=== PATIENT | male | born 1930 | race Caucasian/White ===

== ENCOUNTER 2016-11-09 13:22 | Inpatient (IN) | payer MEDICARE, BC ==
[~2016-11-09] VITALS: Ht 172.7 cm; Wt 80.2 kg
--- NOTE | ~2016-11-09 | HEMODYNAMI ---
PATIENT:SOBIA MORRIS MEDICAL RECORD: [id number] : [birth year] [id number] ADMISSION DATE: 11/10/16 Generatedon:11/13/20169:48 Patient name: SOBIA MORRIS Patient #: [id number] : 1930 Date of study: 11/13/2016 Page: Of Hemodynamic Procedure Report Patient Data Patient Demographics Procedure consent was obtained First Name: SOBIA Gender: Male Last Name: ALEXANDRA : 1930 [facility] Initial: Faheem Age: 86 year(s) Patient #: [id number] Race: SSN: [id number] Additional ID: [id number] Contact details [address]: [address] [place] [address] State: [place] City: [place] Zip code: [address] Past Medical History History of disease Date Diagnosis Comments CAD Allergies: No known allergies Admission Admission Data Admission Date: 11/10/2016 Admission Time: 15:36 Arrival Date: 11/10/2016 Arrival Time: 15:36 Admit Source: Other Insurance Payor: Medicare Room #: D.2119 Height (in.): 68 BSA: 1.96 (m2) Height (cm.): 172.72 BMI: 27.49 (kg/m2) Weight (lbs.): 180.78 Weight (kg.): 82 Lab Results Lab Result Date: 11/13/2016 Lab Result Time: 0:00 Biochemistry Name Units Result Min Max BUN mg/dl 15 --(--*-)-- 7 18 Creatinine mg/dl 1.1 --(--*-)-- 0.6 1.3 CBC Name Units Result Min Max Hemoglobin g/dl 11.9 *-(----)-- 13.5 17.5 Procedure Procedure Types Cath Procedure PCI Procedure Coronary Stent Initial Coronary Stent Additional Procedure Description Procedure Date Procedure Date: 11/13/2016 Procedure Start Time: 9:28 Procedure End Time: 9:42 Procedure Staff Name Function Sonu Perez MD Performing Physician Kermit Quinones RT Scrub Fátima Toure RN Nurse Tye Jama RT Activities Therapist Ashely Pacheco RT Monitor Indication Angina Procedure Data Cath Procedure Fluoroscopy Diagnostic fluoroscopy Total fluoroscopy Time: 4.7 time: 4.7 min min Diagnostic fluoroscopy Total fluoroscopy dose: 872 dose: 872 mGy mGy Contrast Material Contrast Material Type Amount (ml) Isovue 370 96 Entry Location Entry Primary Successful Side Size Upsize Upsize Entry Closure Succes sful Closure Location (Fr) 1 (Fr) 2 (Fr) Remarks Device Remarks Femoral Left 6 Fr Vascade artery Short Closure System Estimated blood loss: 5 ml Procedure Complications No complications Procedure Medications Medication Administration Route Dosage Oxygen NC 2 l/min Heparin Flush Bag added to field 2 bags (1000units/500ml NS) Lidocaine 2% added to field 20 Versed I.V. 1 mg Fentanyl I.V. 50 mcg Heparin Bolus I.V. 4000 units Integrilin (Bolus I.V. 7.3 ml 2mg/ml) Versed I.V. 0.5 mg Fentanyl I.V. 25 mcg Nitroglycerin IC/IA I.C. 200 mcg Plavix P.O. 600 mg Hemodynamics Rest BSA: 1.96 (m2) HGB: 11.9 (g/dl) O2 Consumption: Estimated: 225.79 (ml/min) O2 Co nsumption indexed: Estimated:115.2 (ml/min/m) Heart Rate: 75 (bpm) Snapshots Pre Cath Intra NCS Post Cath Vital Signs Time Heart Resp SPO2 NIBP (mmHg) Rhythm Pain Sedation Rate (ipm) (%) Status Level (bpm) 9:09:54 72 14 97 148/71(119) NSR 0 (11) 10(A) , No pain 9:14:14 71 15 98 151/74(105) NSR 0 (11) 10(A) , No pain 9:18:38 68 16 99 148/65(108) NSR 0 (11) 10(A) , No pain 9:22:58 68 16 98 153/73(113) NSR 0 (11) 10(A) , No pain 9:27:25 64 16 96 135/61(92) NSR 0 (11) 9(A) , No pain 9:31:41 64 15 96 114/65(89) NSR 0 (11) 9(A) , No pain 9:35:53 74 15 98 131/56(98) NSR 0 (11) 9(A) , No pain 9:40:11 64 20 95 113/61(87) NSR 0 (11) 10(A) , No pain Medications Time Medication Route Dose Verified Delivered Reason Notes Effectiveness by by 9:03:58 Oxygen NC 2 Sonu Fátima Per physician l/min Chris Toure RN 9:04:05 Heparin Flush added 2 Sonu Ascencio used for Bag to bags Chris Perez MD procedure (1000units/500ml field NS) 9:04:13 Lidocaine 2% added 20ml Sonu Ascencio used for to vial Chris Perez MD procedure field 9:25:10 Versed I.V. 1 mg Sonu Fátima for sedation Chris Toure RN 9:25:17 Fentanyl I.V. 50 Sonu Fátima for sedation mcg Chris Toure RN 9:27:39 Versed I.V. 0.5 Sonu Fátima for sedation mg Chris Toure RN 9:27:48 Fentanyl I.V. 25 Sonu Fátima for sedation mcg Chris Toure RN 9:29:33 Heparin Bolus I.V. 4000 Sonu Fátima for dose units Chris Toure RN anticoagulation verified wtih dr perez 9:32:41 Integrilin I.V. 7.3 Sonu Fátima for (Bolus 2mg/ml) ml Chris Toure RN antiplatelet therapy 9:37:00 Nitroglycerin I.C. 200 Sonu Ascencio for IC/IA mcg Chris Perez MD vasodilation 9:42:44 Plavix P.O. 600 Sonu Fátima for mg Chris Toure RN antiplatelet therapy Procedure Log Time Note 8:45:54 Informed consent obtained and on chart 8:46:55 Arrival Date: 11/10/2016 3:36:00 PM 8:47:27 Insurance Payor : Medicare 8:47:30 Admit Source: Other 8:48:31 Diagnostic Cath Status : Elective 8:49:00 Indication : Angina 8:49:49 Tye DEMARCO(R) sent for patient. Start room use. 8:49:50 Time tracking: Regular hours 8:49:55 Plan of Care:Hemodynamics will remain stable., Cardiac rhythm will remain stable., Comfort level will be maintained., Respiratory function will remain adequate., Patient/ family verbilizes understanding of procedure., Procedure tolerated without complication., Recovers from procedure without complications.. 8:56:00 Lab Result : BUN 15 mg/dl 8:56:00 Lab Result : Hemoglobin 11.9 g/dl 8:56:00 Lab Result : Creatinine 1.1 mg/dl 8:59:08 Patient received from Med II to CCL 1 Alert and oriented. Tansferred to table in Supine position. 8:59:09 Warm blankets applied, and prema hugger turned on for patient comfort. 8:59:09 Correct patient and procedure confirmed by team. 8:59:10 ECG and BP/O2 sat monitors applied to patient. 9:03:58 Oxygen 2 l/min NC was given by Fátima Toure RN; Per physician; 9:04:05 Heparin Flush Bag (1000units/500ml NS) 2 bags added to field was given by Sonu Perez MD; used for procedure; 9:04:13 Lidocaine 2% 20ml vial added to field was given by Sonu Perez MD; used for procedure; 9:08:38 Vital chart was started 9:08:41 Full Disclosure recording started 9:08:42 Baseline sample Acquired. 9:08:46 Rhythm: sinus rhythm 9:12:54 IV started by Fátima Toure RN inright forearm with a 22 gauge IV catheter with 0.9% NaCl at KVO. 9:12:57 Lab results completed and on chart. 9:13:03 Left groin area was prepped with chlora-prep and draped in sterile fashion 9:13:04 Alarms reviewed by R. N. 9:13:04 Sharps counted by scrub and verified by R.N. 9:24:41 Physician arrived 9:24:41 --------ALL STOP TIME OUT------ 9:24:41 Final Timeout: patient, procedure, and site verified with staff and physician. All members of the team are in agreement. 9:24:43 Left groin site verified by team. 9:24:46 Physical assessment completed. ASA score P 2 - A patient with mild systemic disease as per Sonu Perez MD. 9:24:50 Sedation plan: IV Moderate Sedation Versed, Fentanyl 9:24:52 Zero performed for pressure channel P1 9:25:03 Use device set Femoral PCI 9:25:04 Acist Syringe opened to sterile field. 9:25:05 Acist Hand Control opened to sterile field. 9:25:06 Bag Decanter opened to sterile field. 9:25:06 Cardinal Cath Pack opened to sterile field. 9:25:07 Terumo 6Fr [place] Sheath opened to sterile field. 9:25:08 St Unruly 260cm J .035 wire opened to sterile field. 9:25:10 Versed 1 mg I.V. was given by Fátima Toure RN; for sedation; 9:25:17 Fentanyl 50 mcg I.V. was given by Fátima Toure RN; for sedation; 9:25:27 Merit BasixCompak Inflation Kit opened to sterile field. 9:25:29 Acist Manifold opened to sterile field. 9:25:31 Tegaderm 4 x 4 opened to sterile field. 9:25:32 IV Extension Set opened to sterile field. 9:25:48 Procedure started. 9:27:39 Versed 0.5 mg I.V. was given by Fátima Toure RN; for sedation; 9::48 Fentanyl 25 mcg I.V. was given by Fátima Toure RN; for sedation; 9:28:21 Barlow Whisper J 300cm 0.014 guide wire opened to sterile field. 9:28:22 Medtronic Launcher 6Fr AR 2.0 guide catheter opened to sterile field. 9:28:36 Local anesthetic to left femerol artery with Lidocaine 2% by Sonu Perez MD.INITIAL ACCESS ONLY 9:28:47 A 6 Fr Short sheath was inserted into the Left Femoral artery 9:28:55 6 Fr ar 2 guide catheter was inserted over the wire 9:29:33 Heparin Bolus 4000 units I.V. was given by Fátima Toure RN; for anticoagulation; dose verified wt dr perez 9:29:58 RCA angiography performed. 9:30:21 Guide Catheter removed. unable to cannulate vessel. 9:30:33 Medtronic Launcher 6Fr AR 2.0 SH guide catheter opened to sterile field. 9:30:41 6 Fr ar 2 sh guide catheter was inserted over the wire 9:30:47 whisper wire advanced. 9:32:41 Integrilin (Bolus 2mg/ml) 7.3 ml I.V. was given by Fátima Toure RN; for antiplatelet therapy; 9:32:56 Inflation Number: 1 A Medtronic Resolute 2.5 X 12 stent was prepped and advanced across the R PDA. The stent was deployed at 13 JUSTIN for 0:10 (min:sec). 9:33:11 Inflation number: 1 The stent balloon was then re-inflated across the Dist RCA to 23 JUSTIN for 0:10 (min:sec). 9:33:36 Inflation number: 2 The stent balloon was then re-inflated across the Dist RCA to 7 JUSTIN for 0:10 (min:sec). 9:35:08 Stent catheter was removed intact over wire. 9:36:17 Inflation Number: 3 A Medtronic Resolute 3.0 X 12 stent was prepped and advanced across the Dist RCA. The stent was deployed at 13 JUSTIN for 0:10 (min:sec). 9:37:00 Nitroglycerin IC/IA 200 mcg I.C. was given by Sonu Perez MD; for vasodilation; 9:38:37 Stent catheter was removed intact over wire. 9:38:38 Wire removed. 9:38:38 Guide catheter removed. 9:38:45 Vascade 6/7 Fr Closure Device opened to sterile field. 9:39:23 Sheath removed intact; hemostasis achieved with Vascade Closure System to the Left Femoral artery. 9:39:25 Procedure ended.(Physican Out) 9:41:10 Fluoroscopy time 04.70 minutes. 9:41:19 Flurop Dose total: 872 9:41:19 Fluoroscopy dose: 872 mGy 9:41:24 Contrast amount:Isovue 370 96ml. 9:41:25 Sharps counted by scrub and verified by R.N. 9:41:26 Insertion/operative site no bleeding no hematoma. 9:41:36 Post-op/insertion site Left Femoral artery dressed using a 4 x 4 and Tegaderm. 9:41:47 Post left femerol artery:stable 9:41:49 Post Procedure Pulses reassessed and unchanged 9:41:55 Post procedure rhythm: unchanged. 9:41:57 Estimated blood loss: 5 ml 9:41:59 Post procedure instruction explained to patient.Patient verbalizes understanding. 9:41:59 Patient needs reinforcement of post procedure teaching. 9:42:13 Procedure type changed to Cath procedure, PCI procedure, Coronary Stent Initial, Coronary Stent Additional 9:42:14 Procedure and supply charges have been captured, reviewed, submitted and are correct. 9:42:19 Procedure Complication : No complications 9:42:21 Vital chart was stopped 9:42:22 See physician's report for complete and final results. 9:42:29 Report given to [facility]. 9:42:31 Patient transfered to [facility] with Stretcher. 9:42:34 Procedure ended. 9:42:34 Full Disclosure recording stopped 9:42:44 Plavix 600 mg P.O. was given by Fátima Toure RN; for antiplatelet therapy; 9:42:45 ACC-PCI Only Patient was given prescriptions, or instructed by Sonu Perez MD to start/continue the following medications upon discharge: Plavix 9:42:47 End room use (Document Last) Intervention Summary Intervention Notes Time ActionType Lesion and Equipment Action# Pressure Duration Attributes Used 9:32:56 Place stent R PDA Medtronic 1 13 00:10 Resolute 2.5 X 12 stent 9:33:11 Reinflate Dist RCA Medtronic 1 23 00:10 stent Resolute balloon 2.5 X 12 stent 9:33:36 Reinflate Dist RCA Medtronic 2 7 00:10 stent Resolute balloon 2.5 X 12 stent 9:36:17 Place stent Dist RCA Medtronic 3 13 00:10 Resolute 3.0 X 12 stent Device Usage Item Name Manufacture Quantity Catalog Hospital Part Current Minima l Lot# / Number Charge Number Stock Stock Serial# Code Acist Acist 1 20973 572004 248018 673688 20 Syringe Medical Systems Inc Acist Hand Acist 1 80343 538602 929646 434506 5 Control Medical Systems Inc Bag Microtek 1 2001S 235263 81473 388536 5 Solera [employer] Medical Inc. Cardinal Cardinal 1 [id number] 929918 08759 000130 5 Virtru Terumo 6Fr Terumo 1 [id number] 325957 055585 681926 [address] Unruly 1 489340 893366 555553 594599 30 260cm J .035 wire Merit Merit 1 [id number] 974300 709924 291482 [facility] Infl[facility] Kit Acist Acist 1 68674 042994 901607 026740 5 Wireless Tech Medical Systems Inc Tegaderm 4 3M 1 [id number] 254920 254470 983907 5 x 4 IV Hospira 1 65857-28 101927 16374 954305 5 Extension Set Barlow Barlow 1 [id number] 257194 793713 531173 5 Whisper J Vascular 300cm 0.014 guide wire Medtronic Medtronic 1 [id number] 071646 70711 122220 1 Launcher 6Fr AR 2.0 guide catheter Medtronic Medtronic 1 [id number] 566851 42530 787366 1 Launcher 6Fr AR 2.0 SH guide catheter Medtronic Medtronic 1 [id number] 098432 917802 0 [id number] Resolute 2.5 X 12 stent Medtronic Medtronic 1 [id number] 700098 738054 5 [id number] Resolute 3.0 X 12 stent Vascade 6/7 Cardiva 1 [id number] 434196 524499 944346 5 Fr Closure Medical, Device Inc. Signature Audit [place] Stage Time Signature Unsigned Intra-Procedure 11/13/2016 Ashely Pacheco 9:48:43 AM RT(R) Signatures Monitor : Ashely Pacheco RT Signature : Date : Time : [facility] [address] [place] [address]
--- NOTE | ~2016-11-09 | HEMODYNAMI ---
PATIENT:SOBIA MORRIS MEDICAL RECORD: [id number] : [birth year] [id number] ADMISSION DATE: 11/10/16 Generatedon:11/14/201611:20 Patient name: SOBIA MORRIS Patient #: [id number] : 1930 Date of study: 11/14/2016 Page: Of Hemodynamic Procedure Report Patient Data Patient Demographics Procedure consent was obtained First Name: SOBIA Gender: Male Last Name: ALEXANDRA : 1930 [facility] Initial: Faheem Age: 86 year(s) Patient #: [id number] Race: SSN: [id number] Additional ID: [id number] Contact details [address]: [address] [place] [address] State: [place] City: [place] Zip code: [address] Past Medical History History of disease Date Diagnosis Comments CAD Allergies: No known allergies Admission Admission Data Admission Date: 11/10/2016 Admission Time: 15:36 Arrival Date: 11/10/2016 Arrival Time: 15:36 Room #: D.2119 Insurance Payor: Medicare Height (in.): 68 BSA: 1.96 (m2) Height (cm.): 172.72 BMI: 27.49 (kg/m2) Weight (lbs.): 180.78 Weight (kg.): 82 Lab Results Lab Result Date: 11/14/2016 Lab Result Time: 0:00 Biochemistry Name Units Result Min Max Creatinine mg/dl 1.1 --(--*-)-- 0.6 1.3 CBC Name Units Result Min Max Hemoglobin g/dl 12.2 *-(----)-- 13.5 17.5 Procedure Procedure Types Cath Procedure PCI Procedure Coronary Stent Initial Procedure Description Procedure Date Procedure Date: 11/14/2016 Procedure Start Time: 11:06 Procedure End Time: 11:20 Procedure Staff Name Function Sonu Perez MD Performing Physician Jose Lynn RT Scrub Kisha Block RN Nurse Anderson Torres RN Early Childhood Services Coordinator Aleyda Mariee RT Monitor Procedure Data Cath Procedure Fluoroscopy Diagnostic fluoroscopy Total fluoroscopy Time: 3.4 time: 3.4 min min Diagnostic fluoroscopy Total fluoroscopy dose: 240 dose: 240 mGy mGy Contrast Material Contrast Material Type Amount (ml) Isovue 300 55 Entry Location Entry Primary Successful Side Size Upsize Upsize Entry Closure Succes sful Closure Location (Fr) 1 (Fr) 2 (Fr) Remarks Device Remarks Femoral Right 6 Fr Vascade artery Short Closure System Estimated blood loss: 10 ml Procedure Complications No complications Procedure Medications Medication Administration Route Dosage Oxygen NC 2 l/min Lidocaine 2% added to field 20 Heparin Flush Bag added to field 2 bags (1000units/500ml NS) 0.9% NaCl I.V. 100 ml/hr Versed I.V. 1 mg Fentanyl I.V. 50 mcg Heparin Bolus I.V. 4000 units Versed I.V. 1 mg Fentanyl I.V. 50 mcg Hemodynamics Rest BSA: 1.96 (m2) O2 Consumption: Estimated: 215.02 (ml/min) O2 Consumption indexed : Estimated:109.7 (ml/min/m) Heart Rate: 61 (bpm) Snapshots Pre Cath Intra NCS Post Cath Vital Signs Time Heart Resp SPO2 etCO2 [id number] NIBP (mmHg) Rhythm Pain Sedation Rate (ipm) (%) (mmHg) (mmHg) Status Level (bpm) 10:44:21 59 20 98 0 0 159/75(119) NSR 0 (11) 10(A) , No pain 10:48:49 56 20 98 0 0 138/60(108) NSR 0 (11) 10(A) , No pain 10:53:09 51 16 98 0 0 132/56(104) NSR 0 (11) 10(A) , No pain 10:57:26 57 23 98 0 0 117/61(95) NSR 0 (11) 10(A) , No pain 11:01:35 59 16 97 0 0 125/67(96) NSR 0 (11) 10(A) , No pain 11:05:51 59 19 96 0 0 115/56(94) NSR 0 (11) 10(A) , No pain 11:10:03 63 26 94 0 0 106/62(71) NSR 0 (11) 9(A) , No pain 11:14:13 62 19 97 0 0 112/52(77) NSR 0 (11) 9(A) , No pain 11:18:25 59 16 97 0 0 128/54(80) NSR 0 (11) 10(A) , No pain Medications Time Medication Route Dose Verified Delivered Reason Notes Effectiveness by by 10:46:03 Oxygen NC 2 Sonu Buffie used for l/min Chris Block RN procedure 10:46:11 Lidocaine 2% added 20ml Sonu Sonu for local to vial Chris Perez MD anesthetic field 10:46:17 Heparin Flush added 2 Sonu Sonu used for Bag to bags Chris Perez MD procedure (1000units/500ml field NS) 10:51:57 0.9% NaCl I.V. 100 Sonu Buffie Per physician ml/hr Chris Block RN 11:05:22 Versed I.V. 1 mg Sonuchristina Graceie for sedation Chris Block RN 11:05:28 Fentanyl I.V. 50 Sonu Buffie for sedation mcg Chris Block RN 11:08:01 Heparin Bolus I.V. 4000 Sonu Buffie for verifi ed units Chris Block RN anticoagulation with dr perez 11:10:40 Versed I.V. 1 mg Osnuchristina Graceie for sedation Chris Block RN 11:10:43 Fentanyl I.V. 50 Sonu Graceie for sedation mcg Chris Block RN Procedure Log Time Note 10:28:09 Patient Weight : 180.78 kg 10:28:09 Patient Height : 68 cm 10:28:18 Anderson Torres RN sent for patient. Start room use. 10:28:19 Time tracking: Regular hours 10:28:23 Plan of Care:Hemodynamics will remain stable., Cardiac rhythm will remain stable., Comfort level will be maintained., Respiratory function will remain adequate., Patient/ family verbilizes understanding of procedure., Procedure tolerated without complication., Recovers from procedure without complications.. 10:29:50 Lab Result : Hemoglobin 12.2 g/dl 10:29:50 Lab Result : Creatinine 1.1 mg/dl 10:30:23 ACC Patient presents with Stable Angina CCS Anginal Class 2--Slight limitation of ordinary activity. 10:30:26 ACCPatient has been prescribed/administered the following anti-anginal medication within the last 2 weeks: None 10:37:14 Patient received from PCU to CCL 2 Alert and oriented. Tansferred to table in Supine position. 10:37:15 Warm blankets applied, and prema hugger turned on for patient comfort. 10:37:15 Correct patient and procedure confirmed by team. 10:37:16 Signed procedure consent form obtained from patient. 10:37:17 ECG and BP/O2 sat monitors applied to patient. 10:37:18 Full Disclosure recording started 10:43:14 Vital chart was started 10:43:17 Rhythm: sinus rhythm 10:43:33 H&P Date Dictated: 11/09/2016 Within 30 days and on chart.. 10:43:34 Pre-procedure instructions explained to patient. 10:43:35 Pre-op teaching completed and patient verbalized understanding. 10:43:36 Family in waiting room. 10:43:53 Patient NPO since Midnight. 10:44:03 Is the patient allergic to Iodine/contrast media? Yes. 10:44:06 Is patient on blood thinner?Yes 10:44:08 ACC The patient was administered the following blood thiners within the last 24 hours: ACCPlavix 10:45:13 Patient diabetic? No. 10:45:16 Previous problem with sedation/anesthesia? No ? 10:45:17 Snore? Yes 10:45:18 Sleep apnea? No 10:45:20 Deviated septum? No 10:45:20 Opens mouth fully? Yes 10:45:21 Sticks out tongue? Yes 10:45:23 Airway obstruction? No ? 10:45:27 Dentures? Yes Out 10:45:29 Pre procedure: right dorsailis pedis pulse 2+ Normal; easily identifiable; not easily obliterated 10:45:34 Patient pain scale 0/10 ?. 10:45:44 IV patent on arrival in right forearm with 0.9% NaCl at O. 10:45:49 Lab results completed and on chart. 10:45:52 Right groin area was prepped with chlora-prep and draped in sterile fashion 10:45:53 Alarms reviewed by R. N. 10:45:54 Sharps counted by scrub and verified by R.N. 10:45:58 Use device set Femoral PCI 10:45:59 Acist Syringe opened to sterile field. 10:46:00 Acist Hand Control opened to sterile field. 10:46:00 Bag Decanter opened to sterile field. 10:46:01 Cardinal Cath Pack opened to sterile field. 10:46:01 Terumo 6Fr Coquille Sheath opened to sterile field. 10:46:02 St Unruly 260cm J .035 wire opened to sterile field. 10:46:02 Merit BasixCompak Inflation Kit opened to sterile field. 10:46:02 Acist Manifold opened to sterile field. 10:46:03 Oxygen 2 l/min NC was given by Kisha Block RN; used for procedure; 10:46:03 Tegaderm 4 x 4 opened to sterile field. 10:46:11 Lidocaine 2% 20ml vial added to field was given by Sonu Perez MD; for local anesthetic; 10:46:17 Heparin Flush Bag (1000units/500ml NS) 2 bags added to field was given by Sonu Perez MD; used for procedure; 10:51:57 0.9% NaCl 100 ml/hr I.V. was given by Kisha Block RN; Per physician; 10:53:19 Baseline sample Acquired. 10:55:47 Zero performed for pressure channel P1 11:04:25 Final Timeout: patient, procedure, and site verified with staff and physician. All members of the team are in agreement. 11:04:29 Right groin site verified by team. 11:04:34 Physical assessment completed. ASA score P 3 - A patient with severe systemic disease as per Sonu Perez MD. 11:04:38 Sedation plan: IV Moderate Sedation Versed, Fentanyl 11:04:53 Procedure started. 11:05:22 Versed 1 mg I.V. was given by Kisha Block RN; for sedation; 11:05:28 Fentanyl 50 mcg I.V. was given by Kisha Block RN; for sedation; 11:06:03 Local anesthetic to right femoral artery with Lidocaine 2% by Sonu Perez MD.INITIAL ACCESS ONLY 11:06:17 Cordis 6FR XBLAD 3.5 SH guide catheter opened to sterile field. 11:06:18 Barlow Whisper J 300cm 0.014 guide wire opened to sterile field. 11:06:34 A 6 Fr Short sheath was inserted into the Right Femoral artery 11:06:51 ACC PCI Site: LMCA has 90% stenosis. 11:06:53 ACC Pre-intervention BANDAR Flow is 2. 11:07:02 6 Fr XBLAD 3.5 SH guide catheter was inserted over the wire 11:07:32 Guide Catheter removed. unable to cannulate vessel. 11:08:01 Heparin Bolus 4000 units I.V. was given by Kisha Block RN; for anticoagulation; verified with dr perez 11:08:27 Medtronic Launcher 6Fr EBU 3.0 SH guide catheter opened to sterile field. 11:08:59 6 Fr EBU 3.0 SH guide catheter was inserted over the wire 11:09:38 Whisper wire advanced. 11:10:40 Versed 1 mg I.V. was given by Kisha Block RN; for sedation; 11:10:43 Fentanyl 50 mcg I.V. was given by Kisha Block RN; for sedation; 11:11:16 Inflation number: 1 A Boyds [id number] [place] 3.5 X 12 balloon was prepped and advanced across the LMCA, then inflated to 11 JUSTIN for 0:11 (min:sec). 11:12:09 Balloon removed over the wire. 11:13:56 Inflation Number: 2 A Medtronic Resolute 4.0 X 9 stent was prepped and advanced across the LMCA. The stent was deployed at 13 JUSTIN for 0:12 (min:sec). 11:14:13 Stent catheter was removed intact over wire. 11:14:17 ACC Post-intervention BANDAR Flow is 3. 11:14:19 Wire removed. 11:14:19 Guide catheter removed. 11:15:18 Encore Inflation Device opened to sterile field. 11:15:25 Vascade 6/7 Fr Closure Device opened to sterile field. 11:15:38 Sheath removed intact; hemostasis achieved with Vascade Closure System to the Right Femoral artery. 11:15:41 Procedure ended.(Physican Out) 11:16:10 Fluoroscopy time 03.40 minutes. 11:16:15 Fluoroscopy dose: 240 mGy 11:16:15 Flurop Dose total: 240 11:16:19 Contrast amount:Isovue 300 55ml. 11:16:20 Sharps counted by scrub and verified by R.N. 11:16:22 Insertion/operative site no bleeding no hematoma. 11:16:26 Post-op/insertion site Right Femoral artery dressed using a 4 x 4 and Tegaderm. 11:16:33 Post right femoral artery:stable, clean and dry 11:16:43 Post Procedure Pulses reassessed and unchanged 11:16:50 Post-procedure physical assessment completed. ASA score P 3 - A patient with severe systemic disease as per Sonu Preez MD. 11:16:52 Post procedure rhythm: unchanged. 11:16:58 Estimated blood loss: 10 ml 11:17:00 Post procedure instruction explained to patient.Patient verbalizes understanding. 11:17:00 Patient needs reinforcement of post procedure teaching. 11:17:01 Procedure and supply charges have been captured, reviewed, submitted and are correct. 11:17:07 Procedure Complication : No complications 11:17:10 See physician's report for complete and final results. 11:19:47 Vital chart was stopped 11:19:51 Report given to PCU. 11:19:56 Patient transfered to PCU with Bed. 11:20:06 Procedure ended. 11:20:06 Full Disclosure recording stopped 11:20:10 End room use (Document Last) Intervention Summary Intervention Notes Time ActionType Lesion and Equipment Action# Pressure Duration Attributes Used 11:11:16 Inflate LMCA Boyds 1 11 00:11 balloon Sci [place] 3.5 X 12 balloon 11:13:56 Place stent LMCA Medtronic 2 13 00:12 Resolute 4.0 X 9 stent Device Usage Item Name Manufacture Quantity Catalog Number Hospital Part Current Mini [facility] Lot# / Charge Number Stock Stock Serial# Code Acist Acist 1 43678 [id number] 230831 119545 20 Syringe Medical Systems Inc Acist Hand Acist 1 50797 624592 431547 401584 5 Control Medical Systems Inc Bag Microtek 1 2001S 740509 48197 313161 5 DecEntrisphere Medical Inc. Cardinal Cardinal [address] 732132 30519 619150 5 Newmerix Terumo 6Fr Terumo 1 [id number] 987334 719436 453497 [address] Un[address] St Unruly 1 359864 093448 158537 814926 30 260cm J .035 wire Merit Merit 1 [id number] 496117 083995 335339 15 [facility] Medical Inflation Kit Acist Acist 1 29990 396457 707213 659464 5 [facility] Medical Systems Inc Tegaderm 4 3M 1 [id number] 139982 691494 928253 5 x 4 Cordis 6FR Cardinal 1 [id number] 315260 123161 329206 3 XBLAD 3.5 Health SH guide catheter Barlow Barlow 1 [id number] 369340 461598 524679 5 Whisper J Vascular 300cm 0.014 guide wire Medtronic Medtronic 1 [id number] 377340 09075 039446 0 Launcher 6Fr EBU 3.0 SH guide catheter Boyds Sci Boyds 1 [id number] 435481 817400 133020 1 [place] Scientific 3.5 X 12 balloon Medtronic Medtronic 1 [id number] 992012 773742 0 [id number] Resolute 4.0 X 9 stent Encore Boyds 1 [id number] 382650 178850 366068 5 Inflation Scientific Device Vascade 04/03 Cardiva 1 [id number] 220404 811267 862487 5 Fr Closure Medical, Device Inc. Signature Audit Alexander Stage Time Signature Unsigned Intra-Procedure 11/14/2016 Aledya 11:20:39 AM Counts RT(R) Signatures Monitor : Aleyda Signature : Counts RT Date : Time : [address] [place] [address]
--- NOTE | ~2016-11-09 | HEMODYNAMI ---
PATIENT:SOBIA MORRIS MEDICAL RECORD: [id number] : 28 LOCATION:[facility] D.2119 ADMISSION DATE: 11/11/16 Generatedon:11/12/20168:25 Patient name: SOBIA MORRIS Patient #: [id number] SSN: : Date of study: 11/12/2016 Page: Of Hemodynamic Procedure Report Patient Data Patient Demographics Procedure consent was obtained First Name: SOBIA Gender: Male Last Name: ALEXANDRA : 1930 [facility] Initial: Faheem Age: 86 year(s) Patient #: [id number] Race: Additional ID: [id number] Contact details Address: [address] [place] [address] State: [place] City: [place] Zip code: [address] Past Medical History History of disease Date Diagnosis Comments CAD Allergies: No known allergies Admission Admission Data Admission Date: 11/11/2016 Admission Time: 16:02 Room #: D.2119 Height (in.): 68 BSA: 1.96 (m2) Height (cm.): 172.72 BMI: 27.49 (kg/m2) Weight (lbs.): 180.78 Weight (kg.): 82 Lab Results Lab Result Date: 11/12/2016 Lab Result Time: 0:00 Biochemistry Name Units Result Min Max BUN mg/dl 12 --(-*--)-- 7 18 Creatinine mg/dl 1.1 --(--*-)-- 0.6 1.3 CBC Name Units Result Min Max Hemoglobin g/dl 12.1 *-(----)-- 13.5 17.5 Coagulation Name Units Result Min Max INR units 1.21 --(----)*- 0.85 1.17 PT sec 15.2 --(----)*- 11.6 15 Procedure Procedure Types Cath Procedure Diagnostic Procedure LHC LHC w/Coronaries Procedure Description Procedure Date Procedure Date: 11/12/2016 Procedure Start Time: 8:04 Procedure End Time: 8:24 Procedure Staff Name Function Renaldo Saeed MD Performing Physician Fátima Toure RN Nurse Kermit Quinones RT Scrub Ashely Pacheco RT Monitor Tye Jama RT Theology Teacher Procedure Data Cath Procedure Fluoroscopy Diagnostic fluoroscopy Total fluoroscopy Time: 1.7 time: 1.7 min min Diagnostic fluoroscopy Total fluoroscopy dose: 451 dose: 451 mGy mGy Contrast Material Contrast Material Type Amount (ml) Isovue 300 60 Entry Location Entry Primary Successful Side Size Upsize Upsize Entry Closure Succes sful Closure Location (Fr) 1 (Fr) 2 (Fr) Remarks Device Remarks Femoral Right 5 Fr Exoseal artery Diagnostic catheters Device Type Used For End Catheter Placement Cordis 5Fr JL 4.0 Left Coronary Catheter (MP) Angiography Cordis 5Fr 3DRC Catheter Right Coronary (MP) Angiography Cordis 5Fr Pigtail LV Angiography Catheter (MP) Procedure Complications No complications Procedure Medications Medication Administration Route Dosage Oxygen NC 2 l/min Heparin Flush Bag added to field 2 bags (1000units/500ml NS) Lidocaine 2% added to field 20 Versed I.V. 1 mg Fentanyl I.V. 50 mcg Versed I.V. 0.5 mg Fentanyl I.V. 25 mcg Versed I.V. 0.5 mg Fentanyl I.V. 25 mcg Hemodynamics Rest BSA: 1.96 (m2) HGB: 12.1 (g/dl) O2 Consumption: Estimated: 222.97 (ml/min) O2 Co nsumption indexed: Estimated:113.76 (ml/min/m) Heart Rate: 71 (bpm) Pressure Samples Time Site Value (mmHg) Purpose Heart Use Rate(bpm) 8:12 LV 151/1,-12 EDP 67 8:12 AO 124/49(80) Pullback 68 8:12 LV 129/-7,9 Pullback 68 Gradients Valve Time Site 1 Site 2 Mean SEP/DFP Peak To Heart Use (mmHg) (sec/min) Peak Rate (mmHg) (bpm) Aortic 8:12 LV AO 8 7 5 68 129/-7,9 124/49(80) Calculations Valve P-P Mean Valve Index Valve Source Name Gradient Area Flow (cm2) Aortic 5 8 5 8 Snapshots Pre Cath Intra NCS Post Cath Vital Signs Time Heart Resp SPO2 NIBP (mmHg) Rhythm Pain Sedation Rate (ipm) (%) Status Level (bpm) 7:53:12 69 17 98 148/71(128) NSR 0 (11) 10(A) , No pain 7:57:32 67 16 96 131/65(97) NSR 0 (11) 9(A) , No pain 8:01:44 64 14 98 120/69(89) NSR 0 (11) 9(A) , No pain 8:05:54 65 14 98 123/66(91) NSR 0 (11) 9(A) , No pain 8:10:06 67 15 98 122/60(99) NSR 0 (11) 9(A) , No pain 8:14:17 65 14 98 130/63(87) NSR 0 (11) 9(A) , No pain 8:18:31 68 14 97 127/68(101) NSR 0 (11) 9(A) , No pain 8:22:46 68 15 97 123/64(96) NSR 0 (11) 9(A) , No pain Medications Time Medication Route Dose Verified Delivered Reason Notes Effect iveness by by 7:54:14 Oxygen NC 2 Renaldo Fátima Per l/min Christophe Toure RN physician 7:54:21 Heparin Flush added 2 Renaldo Renaldo used for Bag to bags Christophe Saeed MD procedure (1000units/500ml field NS) 7:54:27 Lidocaine 2% added 20ml Renaldo Renaldo used for to vial Christophe Saeed MD procedure field 7:54:35 Versed I.V. 1 mg Renaldo Fátima for Christophe Toure RN sedation 7:54:41 Fentanyl I.V. 50 Renaldo Fátima for mcg Christophe Toure RN sedation 8:02:38 Versed I.V. 0.5 Renaldo Fátima for mg Christophe Toure RN sedation 8:02:47 Fentanyl I.V. 25 Renaldo Fátima for mcg Christophe Toure RN sedation 8:17:03 Versed I.V. 0.5 Renaldo Fátima for mg Christophe Toure RN sedation 8:17:07 Fentanyl I.V. 25 Renaldo Fátima for mcg Christophe Toure RN sedation Procedure Log Time Note 7:08:07 ACC Patient presents with Unstable Angina CCS Anginal Class 3--Marked limitation of physical activity, angina occurs with ordinary activity.. 7:08:10 Diagnostic Cath status Urgent 7:08:25 Time tracking: Regular hours 7:08:30 Plan of Care:Hemodynamics will remain stable., Cardiac rhythm will remain stable., Comfort level will be maintained., Respiratory function will remain adequate., Patient/ family verbilizes understanding of procedure., Procedure tolerated without complication., Recovers from procedure without complications.. 7:15:38 Lab Result : Hemoglobin 12.1 g/dl 7:15:38 Lab Result : Creatinine 1.1 mg/dl 7::38 Lab Result : BUN 12 mg/dl 7::38 Lab Result : INR 1.21 units 7:15:38 Lab Result : PT 15.2 sec 7:21:00 Patient allergic to No known allergies 7:21:04 Patient Weight : 82 kg 7:30:14 Kermit Quinones RT(R) sent for patient. Start room use. 7:43:48 Patient received from PCU to CCL 1 Alert and oriented. Tansferred to table in Supine position. 7:43:50 Warm blankets applied, and prema hugger turned on for patient comfort. 7:43:50 Correct patient and procedure confirmed by team. 7:43:51 Signed procedure consent form obtained from patient. 7:43:52 ECG and BP/O2 sat monitors applied to patient. 7:49:37 Vital chart was started 7:49:44 Baseline sample Acquired. 7:50:05 Rhythm: sinus rhythm 7:50:06 Full Disclosure recording started 7:50:38 H&P Date Dictated: 11/09/2016 Within 30 days and on chart.. 7:50:39 Pre-procedure instructions explained to patient. 7:50:40 Pre-op teaching completed and patient verbalized understanding. 7:50:42 Family in waiting room. 7:50:47 Patient NPO since Midnight. 7:50:48 Is the patient allergic to Iodine/contrast media? No. 7:51:09 Is patient on blood thinner?No 7:51:12 Patient diabetic? No. 7:51:14 ----Pre-sedation anethsthesia assessment.---- 7:51:16 Previous problem with sedation/anesthesia? No ? 7:51:17 Snore? Yes 7:51:19 Sleep apnea? No 7:51:20 Deviated septum? No 7:51:22 Opens mouth fully? Yes 7:51:23 Sticks out tongue? Yes 7:51:25 Airway obstruction? No ? 7:51:39 Dentures? Yes out 7:51:42 Pre procedure: right dorsailis pedis pulse 1+ Palpable, but thready & weak; easily obliterated 7:51:48 Patient pain scale 0/10 ?. 7:51:53 Patient pain scale 0/10 ?. 7:51:56 Patient pain scale 3/10 ?. 7:52:02 IV patent on arrival in left antecubital with 0.9% NaCl at 10ml/hr. 7:52:06 Lab results completed and on chart. 7:52:09 Right groin area was prepped with chlora-prep and draped in sterile fashion 7:52:11 Alarms reviewed by R. N. 7:52:11 Sharps counted by scrub and verified by R.N. 7:52:22 --------ALL STOP TIME OUT------ 7:52:23 Final Timeout: patient, procedure, and site verified with staff and physician. All members of the team are in agreement. 7:52:24 Right groin site verified by team. 7:52:28 Physical assessment completed. ASA score P 2 - A patient with mild systemic disease as per Renaldo Saeed MD. 7:52:31 Sedation plan: IV Moderate Sedation Versed, Fentanyl 7:54:14 Oxygen 2 l/min NC was given by Fátima Toure RN; Per physician; 7:54:21 Heparin Flush Bag (1000units/500ml NS) 2 bags added to field was given by Renaldo Saeed MD; used for procedure; 7:54:27 Lidocaine 2% 20ml vial added to field was given by Renaldo Saeed MD; used for procedure; 7:54:35 Versed 1 mg I.V. was given by Fátima Toure RN; for sedation; 7:54:41 Fentanyl 50 mcg I.V. was given by Fátima Toure RN; for sedation; 7:56:47 Use device set Femoral Dx 7:56:48 Acist Syringe opened to sterile field. 7:56:48 Bag Decanter opened to sterile field. 7:56:48 Cardinal Cath Pack opened to sterile field. 7:56:49 Terumo 5Fr Barwick Sheath opened to sterile field. 7:56:49 St Unruly 260cm J .035 wire opened to sterile field. 7:56:51 Acist Hand Control opened to sterile field. 7:56:51 Acist Manifold opened to sterile field. 7:56:52 Cordis Infinity 5Fr Multipack catheter opened to sterile field. 7:56:53 Tegaderm 4 x 4 opened to sterile field. 7:57:45 Patient Height : 172.72 cm 8:01:37 Zero performed for pressure channel P1 8:02:38 Versed 0.5 mg I.V. was given by Fátima Toure RN; for sedation; 8:02:47 Fentanyl 25 mcg I.V. was given by Fátima Toure RN; for sedation; 8:03:56 Baseline sample Acquired. 8:04:05 Procedure started. 8:04:19 Local anesthetic to right femoral artery with Lidocaine 2% by Renaldo Saeed MD.INITIAL ACCESS ONLY 8:04:27 A 5 Fr sheath was inserted into the Right Femoral artery 8:05:16 A Cordis 5Fr JL 4.0 Catheter (MP) was advanced over the wire and used for Left Coronary Angiography. 8:05:36 LCA angiography performed. 8:08:37 Catheter removed. 8:08:42 A Cordis 5Fr 3DRC Catheter (MP) was advanced over the wire and used for Right Coronary Angiography. 8:10:00 RCA angiography performed. 8:11:09 Catheter removed. 8:11:14 A Cordis 5Fr Pigtail Catheter (MP) was advanced over the wire and used for LV Angiography. 8:11:17 LV angiography performed. 8:11:20 LV gram done using BEAL 8:11:21 LV hemodynamics recorded. 8:11:25 Injector settings: Ml/sec: 10, Volume: 20, 8:12:33 EF : 35 % 8:12:43 Catheter removed. 8:17:03 Versed 0.5 mg I.V. was given by Fátima Toure RN; for sedation; 8:17:07 Fentanyl 25 mcg I.V. was given by Fátima Toure RN; for sedation; 8:20:20 Sheath removed intact; hemostasis achieved with Exoseal to the Right Femoral artery. 8:20:34 Cordis 5Fr Exoseal opened to sterile field. 8:21:34 Procedure ended.(Physican Out) 8:22:23 Contrast amount:Isovue 300 60ml. 8:23:04 Fluoroscopy time 01.70 minutes. 8:23:07 Fluoroscopy dose: 451 mGy 8:23:07 Flurop Dose total: 451 8:23:09 Sharps counted by scrub and verified by R.N. 8:23:10 Insertion/operative site no bleeding no hematoma. 8:23:12 Post-op/insertion site Right Femoral artery dressed using a 4 x 4 and Tegaderm. 8:23:16 Post right femoral artery:stable 8:23:17 Post Procedure Pulses reassessed and unchanged 8:23:19 Post procedure: right dorsailis pedis pulse 1+ Palpable, but thready & weak; easily obliterated. 8:23:21 Post procedure rhythm: sinus rhythm 8:23:23 Post procedure instruction explained to patient.Patient verbalizes understanding. 8:23:47 Procedure and supply charges have been captured, reviewed, submitted and are correct. 8:23:52 Procedure Complication : No complications 8:24:23 Vital chart was stopped 8:24:24 See physician's report for complete and final results. 8:24:26 Report given to PCU. 8:24:30 Patient transfered to PCU with Bed. 8:24:32 Procedure ended. 8:24:32 Full Disclosure recording stopped 8:24:39 End room use (Document Last) Device Usage Item Name Manufacture Quantity Catalog Hospital Part Current Minimal Lo t# / Number Charge Number Stock Stock Serial# Code Acist Acist 1 21115 [id number] 143626 [id number] 20 Syringe Medical Systems Inc Bag Microtek 1 2002S 928144 96135 661959 5 Decanter Medical Inc. Cardinal Cardinal 1 [id number] 986464 09059 [id number] 5 Think Global [facility] [employer] [facility] 1 [id number] [id number] 983758 263119 [address] St Unruly 1 734857 556055 275368 192485 30 260cm J .035 wire Acist Acist 1 98828 918914 386630 787700 5 Hand Medical Control Systems Inc Acist Acist 1 51882 102386 256222 909340 5 Manifold Medical Systems Inc Cordis Cardinal 1 [id number] 152912 87593 929373 30 Blink[employer] Health 5Fr Multipack catheter Tegaderm 3M 1 1626W 779244 539560 160013 5 4 x 4 Cordis Cardinal 1 217626 5 5Fr JL Health 4.0 Catheter (MP) Cordis Cardinal 1 580885 5 5Fr 3DRC Health Catheter (MP) Cordis Cardinal 1 034916 5 5Fr Health Pigtail Catheter (MP) Cordis Cardinal 1 EX500 353113 655602 957464 10 5Fr Health Exoseal Signature Audit [place] Stage Time Signature Unsigned Intra-Procedure 11/12/2016 Kermit Quinones 8:25:05 AM RT(R) Signatures Monitor : Ashely Pacheco RT Signature : Date : Time : [id number] [place] [address]
[2016-11-09 13:50] LABS: BASOPHILS 0.5 % (0.0-2.0); HEMOGLOBIN 13.8 g/dL (13.5-17.5); IMMATURE GRANULOCYTES 0.2 % (0-5); LYMPHOCYTES 24.5 % (15-50); MCH 31.3 pg (26.0-34.0); MCHC 33.7 g/dL (31.0-37.0); MEAN PLATELET VOLUME 10.3 fL (7.4-10.4); MONOCYTES 14.1 % (2-11); NEUTROPHILS 56.7 % (40-80); PLATELET COUNT 128 10x3/uL (130-400); RBC 4.41 10x6/uL (4.20-6.10); RDW 12.4 % (11.5-14.5)
[2016-11-09 14:04] LABS: ALBUMIN 3.3 g/dL (3.4-5.0); ALKALINE PHOSPHATASE 50 U/L (46-116); ALT (SGPT) 17 U/L (10-68); BILIRUBIN - TOTAL 0.94 mg/dL (0.2-1.3); CALC OSMOLALITY 287 mosm/kg (275-300); CALCIUM 9.3 mg/dL (8.5-10.1); CARBON DIOXIDE 31.4 mmol/L (21.0-32.0); CHLORIDE - SERUM 107 mmol/L (98-107); CREATININE - SERUM 1.2 mg/dL (0.6-1.3); GLUCOSE 95 mg/dL (74-106); POTASSIUM - SERUM 4.3 mmol/L (3.5-5.1); PROTEIN - SERUM 7.1 g/dL (6.4-8.2); SODIUM 144 mmol/L (136-145); UREA NITROGEN 15 mg/dL (7-18); eGFR NON AFRICAN AMERICAN 61 mL/min (90-120)
[2016-11-09 14:16] LABS: CHOL - HDL RATIO 2.5 ratio (2.3-4.9); CHOLESTEROL, TOTAL 136 mg/dL (0-200); CKMB 1.2 U/L (0.0-3.6); CREATINE KINASE 34 UL (21-232); HDL CHOLESTEROL 54 mg/dL (32-96); LDL CHOLESTEROL 64 mg/dL (0-100); LDL-HDL RATIO 1.2 ratio (1.5-3.5); TRIGLYCERIDE 90 mg/dL (30-200)
[2016-11-09 14:17] LABS: TROPONIN-I < 0.017 ng/mL (0.000-0.060)
--- NOTE | 2016-11-09 17:50 | NUR ---
TRANSFER FROM ER BY W/C. HERBERTINTED TO ROOM. CALL LIGHT IN REACH. WILL CONT. PLAN OF CARE.
[2016-11-09 17:56] VITALS: BP 171/55; BMI 27.1
[2016-11-09] MEDS ORDERED: PRAVACHOL20 MG PO (18:24)
[2016-11-09] MEDS ORDERED: METOPROLOL TART25 MG PO (18:25)
[2016-11-09 20:35] VITALS: BP 178/83
[2016-11-10 00:45] VITALS: BP 144/70
--- NOTE | 2016-11-10 02:05 | NUR ---
PT RESTING WELL WITHOUT C/O OR DISTRESS NOTED. NO NEEDS VOICED. CALL LIGHT WITHIN REACH. WILL CONT TO MONITOR.
[2016-11-10 04:20] VITALS: BP 157/58
[2016-11-10 05:37] LABS: CALC OSMOLALITY 288 mosm/kg (275-300); CALCIUM 8.2 mg/dL (8.5-10.1); CARBON DIOXIDE 28.2 mmol/L (21.0-32.0); CHLORIDE - SERUM 110 mmol/L (98-107); CKMB 0.8 U/L (0.0-3.6); CREATININE - SERUM 1.2 mg/dL (0.6-1.3); GLUCOSE 113 mg/dL (74-106); MAGNESIUM - SERUM 2.1 mg/dL (1.8-2.4); POTASSIUM - SERUM 4.2 mmol/L (3.5-5.1); SODIUM 144 mmol/L (136-145); UREA NITROGEN 14 mg/dL (7-18); eGFR NON AFRICAN AMERICAN 61 mL/min (90-120)
[2016-11-10 05:38] LABS: TROPONIN-I < 0.017 ng/mL (0.000-0.060)
--- NOTE | 2016-11-10 07:30 | NUR ---
ASSESSMENT COMPLETED. DENIES ANY NEEDS. TELEMERTY SHOWS SR. IV OF D5NS INFUSING INTO THE LEFT FA. PT IS UP AB JEAN. SR UP TIMES 2 WITH CALL LIGHT IN REACH. WILL MONITOR
[2016-11-10 08:40] VITALS: BP 142/53
[2016-11-10 11:42] VITALS: Ht 172.7 cm; Wt 80.2 kg
[2016-11-10 12:03] VITALS: BP 107/55
--- NOTE | 2016-11-10 14:05 | HP ---
PATIENT: SOBIA MORRIS MEDICAL RECORD: [id number] ACCOUNT: [id number] LOCATION:[facility] D.2119 : 29 ADMISSION DATE: 11/09/16 HISTORY AND PHYSICAL EXAMINATION ADMISSION HISTORY AND PHYSICAL HISTORY OF PRESENT ILLNESS: An 86-year-old male presented to the Emergency Room brought in by EMS for chest pain. He has had multiple episodes over the past 2 weeks. Went today at his house with minimal activity with his daughter. Left substernal chest pain, no relief with rest, EMS was called. The patient received sublingual nitrate and oxygen en route with minimal improvement then gradually improved with supplemental oxygen. PAST MEDICAL AND SURGICAL HISTORY: Significant for CAD, hypertension and hyperlipidemia. He has had 3 stents placed in the past. Denies any other surgical history. SOCIAL HISTORY: Denies tobacco. Lives alone. ALLERGIES: No known drug allergies. CURRENT MEDICATIONS: Listed as metoprolol 25 mg daily, pravastatin 20 mg daily and aspirin 325 mg. REVIEW OF SYSTEMS: GENERAL: No acute change in weight or appetite. HEENT: No cephalgia, visual changes, tinnitus, epistaxis or dysphagia. CARDIOVASCULAR: Chest pain as above, improved with supplemental oxygen. PULMONARY: Denies hemoptysis, denies night sweats. GASTROINTESTINAL: Denies hematemesis, hematochezia or melena. GENITOURINARY: Denies dysuria. MUSCULOSKELETAL: No acute changes. ENDOCRINE: Denies polyuria, polydipsia, or polyphagia. PHYSICAL EXAMINATION: VITAL SIGNS: Temp 98.1, blood pressure 171/55, heart rate 68, respirations 20 and O2 sats 99% with supplemental oxygen at 2 liters. HEENT: Normocephalic and atraumatic. Eyes: Pupils are equally round and reactive to light and accommodation. Extraocular muscles intact. Conjunctivae not injected. Ears: Canals patent, TMs are intact. Nose: Nares patent without drainage. Throat: No erythema, no exudates. NECK: Supple. No lymphadenopathy, no JVD. HEART: Regular rate and rhythm. No S3, S4, no rub. LUNGS: Clear to auscultation bilaterally. Breathing is nonlabored. ABDOMEN: Soft and nontender. Bowel sounds in all 4 quadrants. EXTREMITIES: Present times 4, no edema. NEUROLOGIC: No focal deficits. SKIN: Warm and dry. No rash. LABORATORY DATA: CBC: White count 6, hemoglobin 13.8, hematocrit 41 and platelets 128. Chemistry shows sodium of 144, potassium 4.3, chloride 107, bicarbonate 31.4, BUN 15, creatinine 1.2 and glucose 95. AST 13 and ALT 17. CK-MB is 1.2 and troponin less than 0.017. Albumin 3.3. Triglycerides 90 and LDL 64. Chest x-ray: No acute process. EKG: Sinus rhythm with PVCs, rate of HISTORY AND PHYSICAL [id number] SOBIA MORRIS 63, consistent with previous infarct, nonspecific ST changes. ASSESSMENT AND PLAN: 1. Anginal equivalent with known history of coronary artery disease. The patient was admitted on unassigned medicine. Consult his city constable, Dr. Perez. We will cycle enzymes and supportive care. 2. Hypertension. Restart home medications and monitor. We will also add lisinopril 10 mg p.o. daily. TRANSINT:[id number] Voice Confirmation ID: [id number] DOCUMENT ID: [id number] MARSHALL MAHARAJ DO at 1405 CC: [id number] DICTATION DATE: 11/09/16 183 BOILERMAKER LOFTSMAN: 11/09/162014 ADM IN [facility] [address] [place] [address]
--- NOTE | 2016-11-10 14:42 | NUR ---
LYING QUIETLY. NO NEEDS VOICED.TELEMERTY SHOWS SR. WILL MONITOR
[2016-11-10 14:47] VITALS: BP 121/55
--- NOTE | 2016-11-10 15:01 | NUR ---
PT SITTING UP IN BED DENIES NEEDS WILL CONTINUE TO MONITOR.
--- NOTE | 2016-11-10 18:16 | NUR ---
UP ON SIDE OF BED. DENIES ANY NEEDS. CALL LIGHT IN REACH WITH SR UP. TELEMERTY SHOWS SR
[2016-11-10 20:10] VITALS: BP 141/66
[2016-11-11 00:35] VITALS: BP 117/66
--- NOTE | 2016-11-11 02:00 | NUR ---
PT RESTING WELL WITHOUT C/O OR DISTRESS NOTED. NO NEEDS VOICED. CALL LIGHT WITHIN REACH. WILL CONT TO MONITOR.
[2016-11-11 04:28] VITALS: BP 114/51
[2016-11-11 06:20] LABS: ANION GAP 10.9 mmol/L (8-16); CALCIUM 8.2 mg/dL (8.5-10.1); CARBON DIOXIDE 27.1 mmol/L (21.0-32.0); CREATININE - SERUM 1.1 mg/dL (0.6-1.3)
--- NOTE | 2016-11-11 07:30 | NUR ---
SSESSMENT COMPLETED. TELEMERTY SHOWS SB 55. 02 AT 2 L/M PER NC. DENIES ANY NEEDS. UP AB JEAN. SR UP TIMES 2 WITH CALL LIGHT IN REACH. WILL MONITOR
[2016-11-11 08:07] VITALS: BP 142/57
[2016-11-11 08:29] LABS: BASOPHILS 0.4 % (0.0-2.0); EOSINOPHILS 5.7 % (0-7); HEMATOCRIT 36.5 % (42.0-54.0); IMMATURE GRANULOCYTES 0.2 % (0-5); LYMPHOCYTES 25.4 % (15-50); MCH 30.6 pg (26.0-34.0); MCHC 32.9 g/dL (31.0-37.0); MCV 93.1 fL (80.0-100.0); MEAN PLATELET VOLUME 10.6 fL (7.4-10.4); MONOCYTES 15.1 % (2-11); NEUTROPHILS 53.2 % (40-80); PLATELET COUNT 113 10x3/uL (130-400); RBC 3.92 10x6/uL (4.20-6.10); RDW 12.6 % (11.5-14.5); WBC 5.5 10x3/uL (4.8-10.8)
--- NOTE | 2016-11-11 09:20 | NUR ---
UP TO BR. NO NEEDS INDICATED. WILL CONT. PLAN OF CARE..
--- NOTE | 2016-11-11 10:37 | NUR ---
UP ON SIDE OF BED. DENIES ANY NEEDS. CALL LIGHT IN REACH WITHSR UP. WILL MONITOR
[2016-11-11 12:19] VITALS: BP 155/74
--- NOTE | 2016-11-11 12:21 | NUR ---
UP ON SSSSIDE OF BED FOR DIET. DENIES ANY NEEDS. FAMILY AT BEDSIDE. TELEMERTY SHOWS SR.
[2016-11-11 16:33] VITALS: BP 133/62
[2016-11-11 20:00] VITALS: BP 161/96
--- NOTE | 2016-11-11 21:57 | NUR ---
INIITAL ROUNDS COMPLETED AT 1915 HRS. PT DENIED ANY DISCOMFORT. ASSESSMENT COMPLETED AT 2010HRS. VSS. SR PER CM HR 66. O2 2LNC. LUNGS DIMINISHED IN BASES BILAT. IV TO L FA [id number] AT 100CC/HR. IV PATENT. PT NPO AFTER [facility] FOR [facility]. PRE-PROCEDURE EXPLAINED TO PT. PT CURRENTLY WATCHING TV;DENIES ANY DISCOMFORT. SR UP X2, CALL LIGHT WITHIN REACH.
--- NOTE | 2016-11-12 00:16 | NUR ---
PT RESTING EITH EYES CLOSED. RESP EVEN AND REGULAR. SR UP X2, CALL LIGHT WITHIN REACH.
[2016-11-12 00:33] VITALS: BP 133/60
--- NOTE | 2016-11-12 03:06 | NUR ---
PT RESTING WITH EYES CLOSED. RESP EVEN AND REGULAR. SR UP X2, CALL LIGHT WITHIN REACH.
--- NOTE | 2016-11-12 04:49 | NUR ---
PT AWAKE; DENIES ANY DISCOMFORT. WILL CONTINUE TO MONITOR.
[2016-11-12 04:58] LABS: BASOPHILS 0.5 % (0.0-2.0); EOSINOPHILS 5.2 % (0-7); HEMOGLOBIN 12.1 g/dL (13.5-17.5); IMMATURE GRANULOCYTES 0.2 % (0-5); LYMPHOCYTES 24.3 % (15-50); MCH 30.2 pg (26.0-34.0); MCHC 32.7 g/dL (31.0-37.0); MCV 92.3 fL (80.0-100.0); MEAN PLATELET VOLUME 10.8 fL (7.4-10.4); MONOCYTES 13.4 % (2-11); NEUTROPHILS 56.4 % (40-80); PLATELET COUNT 116 10x3/uL (130-400); RBC 4.01 10x6/uL (4.20-6.10); RDW 12.6 % (11.5-14.5); WBC 5.6 10x3/uL (4.8-10.8)
[2016-11-12 05:11] LABS: INR 1.21 (0.85-1.17); PROTIME 15.2 SECONDS (11.6-15.0)
[2016-11-12 05:12] LABS: APTT 42.6 SECONDS (22.8-39.4)
[2016-11-12 05:19] VITALS: BP 131/45
[2016-11-12 05:24] LABS: ANION GAP 11.5 mmol/L (8-16); CALCIUM 8.3 mg/dL (8.5-10.1); CARBON DIOXIDE 26.4 mmol/L (21.0-32.0); CREATININE - SERUM 1.1 mg/dL (0.6-1.3); POTASSIUM - SERUM 3.9 mmol/L (3.5-5.1)
--- NOTE | 2016-11-12 06:54 | NUR ---
VSS THROUGHOUT NGIHT. SR PER CM. AM BATH DONE. IV TO LFA INFILTRATED. DC'D WITH CATHETER INTACT. NEW IV STARTED #20 TO INNER LFA WITH ATTEMPT X1. NS TKO UP FOR PRE-OP. NEEDS MET; WILL CONITNUE TO MONITOR.
--- NOTE | 2016-11-12 07:15 | NUR ---
ASSESSMENT DONE. DENIES NEEDS.
--- NOTE | 2016-11-12 07:35 | NUR ---
TO CORPORATE SAFETY COORDINATOR PER BED
--- NOTE | 2016-11-12 08:30 | NUR ---
RETURN FROM ORAL PATHOLOGIST. RT SOMMER RODRIGUEZ/D, PULSE PALP.
--- NOTE | 2016-11-12 09:55 | NUR ---
RESTS IN BED POST HC. IV PATENT. RESP UL ON . CALL LIGHT IN REACH. WILL CONT. PLAN OF CARE.
--- NOTE | 2016-11-12 10:30 | NUR ---
DRSG REMAINS C/D, PULSE PALP. UP TO RESTROOM.
--- NOTE | 2016-11-12 12:52 | NUR ---
Nutrition follow-up: Diet: Low sodium PO intake 100% of meals Labs reviewed +BM Wt: 181# Pt meeting est nutritional needs at this time. RDN following.
--- NOTE | 2016-11-12 17:03 | NUR ---
WITHOUT CHANGES OR DISTRESS NOTED AT THIS TIME. DENIES NEEDS.
[2016-11-12 21:43] VITALS: BP 135/54
[2016-11-13 01:28] VITALS: BP 140/64
[2016-11-13 05:24] LABS: BASOPHILS 0.5 % (0.0-2.0); EOSINOPHILS 5.6 % (0-7); HEMATOCRIT 35.8 % (42.0-54.0); HEMOGLOBIN 11.9 g/dL (13.5-17.5); IMMATURE GRANULOCYTES 0.2 % (0-5); LYMPHOCYTES 22.5 % (15-50); MCH 30.4 pg (26.0-34.0); MCHC 33.2 g/dL (31.0-37.0); MCV 91.6 fL (80.0-100.0); MEAN PLATELET VOLUME 10.5 fL (7.4-10.4); MONOCYTES 14.8 % (2-11); NEUTROPHILS 56.4 % (40-80); PLATELET COUNT 107 10x3/uL (130-400); RBC 3.91 10x6/uL (4.20-6.10); RDW 12.5 % (11.5-14.5); WBC 5.6 10x3/uL (4.8-10.8)
[2016-11-13 05:43] LABS: ANION GAP 8.8 mmol/L (8-16); CALCIUM 8.2 mg/dL (8.5-10.1); CARBON DIOXIDE 29.1 mmol/L (21.0-32.0); CREATININE - SERUM 1.1 mg/dL (0.6-1.3); POTASSIUM - SERUM 3.9 mmol/L (3.5-5.1)
[2016-11-13 05:45] VITALS: BP 120/63
[2016-11-13 08:00] VITALS: BP 126/64
--- NOTE | 2016-11-13 08:05 | NUR ---
ASSESSMENT DONE. DENIES NEEDS.
--- NOTE | 2016-11-13 09:07 | NUR ---
TO MULTIPLE SLIDE OPERATOR PRE BED
--- NOTE | 2016-11-13 09:42 | NUR ---
IN PATROL CONDUCTOR BY BED. WILL CONT. PLAN OF CARE.
[2016-11-13 12:00] VITALS: BP 145/66
[2016-11-13 16:00] VITALS: BP 129/57
--- NOTE | 2016-11-13 17:11 | NUR ---
WITHOUT CHANGES OR DISTRESS NOTED AT THIS TIME. TATIANA NEEDS.
[2016-11-13 19:00] VITALS: BP 148/64
--- NOTE | 2016-11-13 21:27 | NUR ---
PT ASSESSMENT COMPLETED NO DISTRESS OBSERVED PT LAYING IN BED RESPERATIONS EVEN AND UNLABORED ON ROOM AIR. PT INFOMRED OF DRIER FEEDER IN AM AND PT VERBALIZED UNDERSTANDING CONSENTS SIGNED AND TO CHART AND PT VERBALIZED UNDERSTANDING BED LOW AND LOCKED SRX2 AND CALL LIGHTIN REACH WILL MONITOR
[2016-11-14] VITALS: BP 109/63
[2016-11-14 04:00] VITALS: BP 132/67
[2016-11-14 05:35] LABS: BASOPHILS 0.8 % (0.0-2.0); EOSINOPHILS 5.8 % (0-7); HEMATOCRIT 36.4 % (42.0-54.0); HEMOGLOBIN 12.2 g/dL (13.5-17.5); IMMATURE GRANULOCYTES 0.2 % (0-5); LYMPHOCYTES 20.9 % (15-50); MCH 30.6 pg (26.0-34.0); MCHC 33.5 g/dL (31.0-37.0); MCV 91.2 fL (80.0-100.0); MEAN PLATELET VOLUME 10.8 fL (7.4-10.4); MONOCYTES 15.4 % (2-11); NEUTROPHILS 56.9 % (40-80); PLATELET COUNT 109 10x3/uL (130-400); RBC 3.99 10x6/uL (4.20-6.10); RDW 12.4 % (11.5-14.5); WBC 5.2 10x3/uL (4.8-10.8)
[2016-11-14 05:51] LABS: ANION GAP 12.2 mmol/L (8-16); CALCIUM 7.8 mg/dL (8.5-10.1); CARBON DIOXIDE 26.5 mmol/L (21.0-32.0); CREATININE - SERUM 1.1 mg/dL (0.6-1.3); POTASSIUM - SERUM 3.7 mmol/L (3.5-5.1)
--- NOTE | 2016-11-14 07:12 | NUR ---
ASSESSMENT DONE. DENIES NEEDS.
[2016-11-14 08:24] VITALS: BP 143/68
--- NOTE | 2016-11-14 09:55 | NUR ---
RESTS IN BED WITH CALL LIGHT IN REACH. FAMILY AT BS. WILL CONT. PLAN OF CARE.
--- NOTE | 2016-11-14 10:39 | NUR ---
TO AUCTIONEER AUTOMOBILE PER BED
--- NOTE | 2016-11-14 11:30 | NUR ---
RETURN FROM SUPERVISOR AIR CONDITIONING INSTALLER PER BED. RT SOMMER RODRIGUEZ C/D, PULSE PALP.
--- NOTE | 2016-11-14 11:42 | NUR ---
FAMILY AT SIDE.
[2016-11-14] MEDS ORDERED: PLAVIX75 MG PO (12:37)
[2016-11-14] MEDS ORDERED: ECOTRIN325 MG PO (12:37)
[2016-11-14 13:17] VITALS: BP 120/57
--- NOTE | 2016-11-14 14:06 | NUR ---
Patient Name: SOBIA MORRIS Admission Status: ER Accout number: [id number] Admission Date: 11-10-2016 : 1930 Admission Diagnosis:ATHSCL HEART DISEASE OF MCGRATH CORONARY ARTERY W/O NATASHA Attending: YARIEL Current LOS: 4 Anticipated DC Date: 11-14-2016 Planned Disposition: Home Primary Insurance: MEDICARE A & B Discharge Planning Comments: * Is the patient Alert and Oriented? Yes 0 * How many steps to enter\exit or inside your home? NONE 0 * PCP DR. PEÑALOZA 0 * Pharmacy [facility] [address] 0 * Preadmission Environment Home Alone 0 * ADLs Independent 0 * Equipment Cane 0 * Other Equipment NO MEDICAL EQUIPMENT PROVIDER PREFERENCE 0 * List name and contact numbers for known caregivers / representatives who currently or will assist patient after discharge: SOBIA MORRIS, SON, 0 * Community resources currently utilized None 0 * Please name any agencies selected above. NONE 0 * Additional services required to return to the preadmission environment? No 0 * Can the patient safely return to the preadmission environment? Yes 0 * Has this patient been hospitalized within the prior 30 days at any hospital? No 0 CM MET WITH PT IN ROOM TO DISCUSS DISCHARGE PLANNING AND NEEDS. PT REPORTS LIVING AT HOME INDEPENDENTLY AND ALONE. PT HAS A CANE THAT HE KEEPS IN CASE HE EVER NEEDS IT BUT DOES NOT USE IT NOW. PT HAS NO MEDICAL EQUIPMENT PROVIDER AND NO OUTSIDE SERVICES ASSISTING IN THE HOME. CM DISCUSSED AVAILABILITY OF HOME HEALTH, REHAB SERVICES AND MEDICAL EQUIPMENT. PT DENIES DISCHARGE NEEDS, REPORTS HIS SON AND DAUGHTER WILL PICK HIM UP FOR DISCHARGE HOME TODAY. IMPORTANT MESSAGE FROM MEDICARE PROVIDED AND EXPLAINED. Claim Trainee: Sonido Daniel
[2016-11-14 16:27] VITALS: BP 113/56
--- NOTE | 2016-11-14 16:33 | NUR ---
DC GIVEN TO PT AND DAUGHTER
--- NOTE | 2016-11-14 16:43 | NUR ---
DC HOME PER PERSONAL CAR
--- NOTE | 2016-11-16 16:40 | OP ---
PATIENT NAME: SOBIA MORRIS MEDICAL RECORD: [id number] :28 LOCATION:D.M2 D.2119 ADMISSION DATE:11/10/16 SURGEON: KATHARINA ANGULO MD DATE OF OPERATION: 11/14/2016 PROCEDURES: 1. PTCA stent left main. 2. Selective coronary angiography. INDICATION: Angina and coronary artery disease. PROCEDURE IN DETAIL: After informed consent was obtained and after a detailed explanation of the risks, benefits, as well as alternative therapies, the patient elected to proceed with angiogram and angioplasty. The right femoral area is prepped and draped in normal sterile fashion. Right femoral artery was cannulated via modified Seldinger technique with placement of 6-Dutch sheath. All catheters exchanged through this sheath. FINDINGS: 1. Left main is 95% stenosis addressed with a 4.0 x 9 mm Resolute stent. Result was 0% residual stenosis. OVERALL IMPRESSION: Successful percutaneous transluminal coronary angioplasty stent of the left main going from 95% initial stenosis to 0% residual. TRANSINT:[id number] Voice Confirmation ID: [id number] DOCUMENT ID: [id number] KATHARINA ANGULO MD at 1640 CC: [id number] DICTATION DATE: 11/14/16 1120 ART DISPLAY MAKER: 11/14/16 1132 DIS IN 11/14/[address] [address]
--- NOTE | 2016-11-16 16:40 | DS ---
PATIENT:SOBIA MORRIS :[birth year] MEDICAL RECORD: [id number] DISCHARGE SUMMARY ADMISSION DATE: 11/10/16 DISCHARGE DATE: 11/14/16 DISCHARGE DIAGNOSES: 1. Angina. 2. Coronary artery disease. 3. Percutaneous transluminal coronary angioplasty stent right coronary artery and left main this admission. HOSPITAL COURSE: This is a gentleman who presents with unstable anginal symptomatology, found to have significant left main RCA and LAD disease, underwent successful PTCA stent of the left main and RCA, discharged home with the addition of aspirin and Plavix to his medical regimen. He will be brought back in 1 week for PTCA stent of the LAD. TRANSINT:[id number] Voice Confirmation ID: [id number] DOCUMENT ID: [id number] KATHARINA ANGULO MD at 1640 CC: [id number] DICTATION DATE: 11/14/16 1120 RUSTIC FENCE BUILDER: 11/14/16 1155 DIS IN 11/14/16 [id number] [place] [address]
--- NOTE | 2016-11-16 16:40 | OP ---
PATIENT NAME: SOBIA MORRIS MEDICAL RECORD: [id number] :29 LOCATION:D.M2 D.2119 ADMISSION DATE:11/10/16 SURGEON: KATHARINA ANGULO MD DATE OF OPERATION: 11/13/2016 PROCEDURES: 1. PTCA stent RCA. 2. PTCA stent RCA PDA. 3. Selective coronary angiography. INDICATION: Angina and coronary artery disease. PROCEDURE IN DETAIL: After informed consent was obtained and after a detailed explanation of the risks, benefits, as well as alternative therapies, the patient elected to proceed with angiogram and angioplasty. The left femoral area was prepped and draped in normal sterile fashion. The left femoral artery was cannulated via modified Seldinger technique with placement of 6-Nepali sheath. All catheters exchanged through this sheath. FINDINGS: The right coronary and the PDA, both have an 80+ percent stenosis. The PDA was addressed with a 2.5 x 12 mm Resolute and the RCA with a 3.0 x 12 mm Resolute. Result was 0% residual stenosis. OVERALL IMPRESSION: Successful percutaneous transluminal coronary angioplasty stent of the right coronary artery and right coronary artery, patent ductus arteriosus going from greater than 80% initial stenosis to 0% residual. TRANSINT:[id number] Voice Confirmation ID: [id number] DOCUMENT ID: [id number] KATHARINA ANGULO MD at 1640 CC: [id number] DICTATION DATE: 11/13/16 1021 BIODIESEL ENGINE SPECIALIST: 11/13/16 1039 DIS IN 11/14/[address] [address]
--- NOTE | 2016-11-19 15:45 | OP ---
PATIENT NAME: SOBIA MORRIS MEDICAL RECORD: [id number] :29 LOCATION:D. D.2119 ADMISSION DATE:11/10/16 SURGEON: SHER VEGA M.D. DATE OF OPERATION: 11/12/2016 REFERRING PHYSICIAN: Dr. eYfri Bower. PROCEDURES PERFORMED: 1. Selective coronary angiography. 2. Left heart catheterization with ventriculogram. INDICATION: An 86-year-old gentleman presents with symptoms of unstable angina and near syncope. EQUIPMENT USED: A 5-Turkmen JL4, Levy right, and pigtail catheter. TECHNIQUE: A 5-Turkmen sheath was inserted in retrograde fashion in the right common femoral artery. Next, selective coronary angiography was performed in standard 5-Turkmen JL4 and Levy right. Left heart catheterization performed using pigtail catheter. CORONARY ANATOMY: 1. Left main: Left main trunk is large in caliber. It gives rise to the LAD and circumflex. It has an ostial 95% stenosis. 2. LAD: This is a large caliber vessel extending to the apex. The proximal vessel has been stented. Proximal to the stent involving the ostium is a 90% stenosis involving the origin of the LAD. 3. Circumflex: This vessel is moderate in caliber. It has mild irregularities throughout its course, but nothing worse than 30%. 4. Right coronary artery: This vessel is moderate in caliber and dominant. The proximal and distal vessels have been stented. The distal stent demonstrates a 70% in-stent restenosis. The PDA has an 80% to 90% stenosis after the existing stents 5. Left ventricle: Left ventricle is normal size. There is global hypokinesis noted. Estimated ejection fraction is in the order of 35% to 40%. IMPRESSION: 1. High-grade coronary artery disease involving the left main and LAD. 2. Mild to moderate left ventricular dysfunction. RECOMMENDATIONS: Ideally, he would do best assisted with bypass grafting. However, because of his LV function and age, I am concerned he may not do well with surgery. We may need to consider high risk PTCA to the left main. I will review the situation with the patient and his family. TRANSINT:[id number] Voice Confirmation ID: [id number] DOCUMENT ID: [id number] OPERATIVE REPORT [id number] ALEXANDRASOBIA BINGHAM SHER VEGA M.D. at 1545 CC: [id number] DICTATION DATE: 11/12/16828 PURCHASING OFFICER: 11/12/16 0842 DIS IN 11/14/16 [place] [id number] [place] [address]
--- NOTE | 2016-11-19 15:45 | EC ---
PATIENT:SOBIA MORRIS DATE OF SERVICE: 11/09/16 SEX: M MEDICAL RECORD: [id number] DATE OF : 28 LOCATION:D. D.211 AGE OF PATIENT: 86 ADMISSION DATE: 11/10/16 REFERRING PHYSICIAN: INTERPRETING PHYSICIAN: SHER SAEED M.D. ECHOCARDIOGRAM REPORT ECHO CHARGES 4 ECHO COMPLETE CLINICAL DIAGNOSIS: aortic stenosis ECHOCARDIOGRAPHIC MEASUREMENTS (adult normal given) AC root (d.<3.7cm) 3.8 LV Septum d (<1.2 cm> 1.3 Valve Excursion LV Septum (systole) Left Atria (s.<4.0cm> 3.5 LVPW d(<1.2cm) 1.2 RV (d.<2.3cm) 2.9 LVPW (sytole) LV diastole(<5.6CM) 4.4 MV E-F(>70mm/sec) LV systole 3.3 LVOT Diameter 2.2 MV exc.(>10mm) Est.ejection fraction (50-75%) 55 Pericardial Effusion DOPPLER: LVIT A 87 E 80 LA RVSP LVOT 87 AOP1/2T Asc. Ao 206 RVOT RA PA 111 AV Gradient Peak 17.0 AV Mean 8.1 AV Area 1.7 MV Gradient Peak 3.5 MV Mean 1.3 MV Area 4.8 COMMENTS: Chronic Specialist: Willis Rios Chocolatier:Jose A Saeed TAPE# DATE OF SERVICE: 11/10/2016 REFERRING PHYSICIAN: Yefri Bower MD INDICATION: Chest pain. DESCRIPTION: Left ventricle appears normal in size and function. No wall motion abnormalities are noted. Estimated ejection fraction is 60%. Mitral valve appears structurally normal. There is mild regurgitation seen. Left atrium is normal in size. The aortic valve is trileaflet. Leaflets are ECHOCARDIOGRAM REPORT [id number] SOBIA MORRIS thickened, but there is no evidence of stenosis. Trivial insufficiency is noted. Right ventricle is normal in size and function. Tricuspid valve is structurally normal. There is no regurgitation noted. Right atrium is normal in size. There is no pericardial effusion noted. IMPRESSION: 1. Normal left ventricular size and function, ejection fraction of 60%. 2. Mild mitral regurgitation. 3. Aortic valve sclerosis without stenosis. TRANSINT:[id number] Voice Confirmation ID: [id number] DOCUMENT ID: [id number] SHER SAEED M.D. at 1545 CC: [id number] DICTATION DATE: 11/10/161741 INSERTER OPERATOR: 11/10/162222 DIS IN 11/14/16 [place] [id number] [place] [id number]
== END 2016-11-14 16:44 | disposition home or self-care (01) | DRG 247 ==
LOC: D.ER 13:22 → D.M2 15:35 → OBSVTIME 15:35 → D.M2 11-10 15:36 → D.SDCHOLD 11-12 15:54 → D.M2 11-14 16:44
PROVIDERS: Emergency Medicine; Internal Medicine Cardiovascular Disease; Internal Medicine Interventional Cardiology; ADMIT Family Medicine
PROC: 4A023N7 Measurement of Cardiac Sampling and Pressure, Left Heart, Percutaneous Approach (ICD-10-PCS; 2016-11-12)
PROC: B211YZZ Fluoroscopy of Multiple Coronary Arteries using Other Contrast (ICD-10-PCS; 2016-11-12)
PROC: B215YZZ Fluoroscopy of Left Heart using Other Contrast (ICD-10-PCS; 2016-11-12)
PROC: 027135Z Dilation of Coronary Artery, Two Arteries with Two Drug-eluting Intraluminal Devices, Percutaneous Approach (ICD-10-PCS; principal; 2016-11-13 11:45)
PROC: 027034Z Dilation of Coronary Artery, One Artery with Drug-eluting Intraluminal Device, Percutaneous Approach (ICD-10-PCS; 2016-11-14)
DX: I25.110 Atherosclerotic heart disease of native coronary artery with unstable angina pectoris (principal); I10 Essential (primary) hypertension; E78.5 Hyperlipidemia, unspecified; I51.9 Heart disease, unspecified; I35.8 Other nonrheumatic aortic valve disorders

== ENCOUNTER 2016-11-20 08:59 | Outpatient (CLI) | payer MEDICARE, BC ==
[~2016-11-20] VITALS: Ht 172.7 cm; Wt 79.5 kg
--- NOTE | ~2016-11-20 | HEMODYNAMI ---
PATIENT:SOBIA MORRIS MEDICAL RECORD: [id number] : 29 LOCATION:FLORA ADMISSION DATE: 11/20/16 Generatedon:11/20/201612:51 Patient name: SOBIA MORRIS Patient #: [id number] : 1930 Date of study: 11/20/2016 Page: Of Hemodynamic Procedure Report Patient Data Patient Demographics Procedure consent was obtained First Name: SOBIA Gender: Male Last Name: ALEXANDRA : 1930 [facility] Initial: Faheem Age: 86 year(s) Patient #: [id number] Race: SSN: [id number] Additional ID: [id number] Contact details [address]: [address] [place] [address] State: [place] City: [place] Zip code: [address] Past Medical History History of disease Date Diagnosis Comments CAD Allergies: No known allergies Admission Admission Data Admission Date: 11/20/2016 Admission Time: 8:59 Admit Source: Other Height (in.): 68 BSA: 1.94 (m2) Height (cm.): 172.72 BMI: 26.82 (kg/m2) Weight (lbs.): 176.37 Weight (kg.): 80 Lab Results Lab Result Date: 11/14/2016 Lab Result Time: 0:00 Biochemistry Name Units Result Min Max Creatinine mg/dl 1.1 --(--*-)-- 0.6 1.3 CBC Name Units Result Min Max Hemoglobin g/dl 12.2 *-(----)-- 13.5 17.5 Procedure Procedure Types Cath Procedure PCI Procedure Coronary Stent Initial Procedure Description Procedure Date Procedure Date: 11/20/2016 Procedure Start Time: 12:28 Procedure End Time: 12:50 Procedure Staff Name Function Sonu Perez MD Performing Physician Kisha Block RN Nurse Tye Jama RT Monitor Jackie Her RT Scrub Procedure Data Cath Procedure Fluoroscopy Diagnostic fluoroscopy Total fluoroscopy Time: 4.9 time: 4.9 min min Diagnostic fluoroscopy Total fluoroscopy dose: 514 dose: 514 mGy mGy Contrast Material Contrast Material Type Amount (ml) Isovue 300 45 Entry Location Entry Primary Successful Side Size Upsize Upsize Entry Closure Succes sful Closure Location (Fr) 1 (Fr) 2 (Fr) Remarks Device Remarks Femoral Right 7 Fr Exoseal artery Short Estimated blood loss: 10 ml Procedure Complications No complications Procedure Medications Medication Administration Route Dosage Oxygen NC 2 l/min Benadryl I.V. 50 mg Lidocaine 2% added to field 20 Heparin Flush Bag added to field 2 bags (1000units/500ml NS) 0.9% NaCl I.V. 100 ml/hr Versed I.V. 1 mg Fentanyl I.V. 50 mcg Versed I.V. 1 mg Fentanyl I.V. 50 mcg Heparin Bolus I.V. 4000 units Hemodynamics Rest BSA: 1.94 (m2) HGB: 12.2 (g/dl) O2 Consumption: Estimated: 210.71 (ml/min) O2 Co nsumption indexed: Estimated:108.61 (ml/min/m) Heart Rate: 58 (bpm) Snapshots Pre Cath Intra NCS Post Cath Vital Signs Time Heart Resp SPO2 etCO2 AA0hash NIBP (mmHg) Rhythm Pain Sedation Rate (ipm) (%) (mmHg) (mmHg) Status Level (bpm) 12:14:04 71 21 98 0 0 161/77(128) NSR 0 (11) 10(A) , No pain 12:18:27 71 15 99 0 0 171/83(131) NSR 0 (11) 10(A) , No pain 12:22:47 66 19 99 0 0 146/72(123) NSR 0 (11) 10(A) , No pain 12:27:07 66 9 98 0 0 138/66(96) NSR 0 (11) 9(A) , No pain 12:31:27 70 27 99 0 0 140/63(97) NSR 0 (11) 9(A) , No pain 12:35:45 68 28 98 0 0 128/67(103) NSR 0 (11) 9(A) , No pain 12:40:03 63 25 98 0 0 127/59(93) NSR 0 (11) 9(A) , No pain 12:44:11 70 20 99 0 0 136/85(123) NSR 0 (11) 10(A) , No pain 12:48:23 72 22 98 0 0 149/81(122) NSR 0 (11) 10(A) , No pain Medications Time Medication Route Dose Verified Delivered Reason Notes Effectiveness by by 12:15:21 Oxygen NC 2 Sonu Graceie used for l/min Chris Block RN procedure 12:15:39 Benadryl I.V. 50 mg Sonu Buffie used for Chris Block RN procedure 12:15:47 Lidocaine 2% added 20ml Sonu Sonu for local to vial Chris Perez MD anesthetic field 12:15:54 Heparin Flush added 2 Sonu Buffie used for Bag to bags Chris Block RN procedure (1000units/500ml field NS) 12:16:04 0.9% NaCl I.V. 100 Sonu Buffie Per physician ml/hr Chris Block RN 12:23:23 Versed I.V. 1 mg Sonu Beard for sedation Chris Block RN 12:23:28 Fentanyl I.V. 50 Sonu Buffie for sedation mcg Chris Block RN 12:29:36 Versed I.V. 1 mg Sonuchristina Graceie for sedation Chris Block RN 12:29:39 Fentanyl I.V. 50 Sonu Graceie for sedation mcg Chris Block RN 12:36:35 Heparin Bolus I.V. 4000 Sonu Buffie for verifi ed units Chris Block RN anticoagulation with dr perez Procedure Log Time Note 11:45:11 Kisha Block RN sent for patient. Start room use. 11:55:45 Admit Source: Other 11:56:23 Time tracking: Regular hours 11:56:27 Plan of Care:Hemodynamics will remain stable., Cardiac rhythm will remain stable., Comfort level will be maintained., Respiratory function will remain adequate., Patient/ family verbilizes understanding of procedure., Procedure tolerated without complication., Recovers from procedure without complications.. 12:05:59 Patient received from Outpatients to CCL 2 Alert and oriented. Tansferred to table in Supine position. 12:06:01 Warm blankets applied, and prema hugger turned on for patient comfort. 12:06:02 Correct patient and procedure confirmed by team. 12:06:03 Signed procedure consent form obtained from patient. 12:06:03 ECG and BP/O2 sat monitors applied to patient. 12:12:54 Vital chart was started 12:12:56 Baseline sample Acquired. 12:13:03 Baseline sample Acquired. 12:13:09 Rhythm: sinus rhythm 12:13:13 Full Disclosure recording started 12:14:22 H&P Date Dictated: 11/20/2016 New H&P dictated by physician.. 12:14:23 Pre-procedure instructions explained to patient. 12:14:24 Pre-op teaching completed and patient verbalized understanding. 12:14:25 Family in waiting room. 12:14:28 Patient NPO since Midnight. 12:14:31 Is the patient allergic to Iodine/contrast media? No. 12:14:32 Is patient on blood thinner?Yes 12:14:37 ACC The patient was administered the following blood thiners within the last 24 hours: ACCPlavix 12:14:39 Patient diabetic? No. 12:14:43 Previous problem with sedation/anesthesia? No ? 12:14:57 Snore? No 12:15:05 Sleep apnea? No 12:15:06 Deviated septum? No 12:15:08 Opens mouth fully? Yes 12:15:08 Sticks out tongue? Yes 12:15:11 Airway obstruction? No ? 12:15:13 Dentures? Yes IN 12:15:17 Pre procedure: right dorsailis pedis pulse 1+ Palpable, but thready & weak; easily obliterated 12:15:19 Patient pain scale 0/10 ?. 12:15:21 Oxygen 2 l/min NC was given by Kisha Block RN; used for procedure; 12:15:36 IV patent on arrival in left hand with 0.9% NaCl at [facility]. 12:15:39 Benadryl 50 mg I.V. was given by Kisha Block RN; used for procedure; 12:15:41 Lab results completed and on chart. 12:15:44 Right groin area was prepped with chlora-prep and draped in sterile fashion 12:15:45 Alarms reviewed by R. N. 12:15:45 Sharps counted by scrub and verified by R.N. 12:15:47 Lidocaine 2% 20ml vial added to field was given by Sonu Perez MD; for local anesthetic; 12:15:54 Heparin Flush Bag (1000units/500ml NS) 2 bags added to field was given by Kisha Block RN; used for procedure; 12:16:04 0.9% NaCl 100 ml/hr I.V. was given by Kisha Block RN; Per physician; 12:18:17 Use device set Femoral PCI 12:18:19 Tegaderm 4 x 4 opened to sterile field. 12:18:20 Acist Manifold opened to sterile field. 12:18:21 Acist Syringe opened to sterile field. 12:18:21 Acist Hand Control opened to sterile field. 12:18:21 Bag Decanter opened to sterile field. 12:18: Cardinal Cath Pack opened to sterile field. 12:18: St Unruly 260cm J .035 wire opened to sterile field. 12:18: Merit BasixCompak Inflation Kit opened to sterile field. 12:21:35 Zero performed for pressure channel P1 12:21:55 Physician paged 12:22:11 Patient Height : 68 inches 12:22:25 Patient Weight : 176.37 lbs 12::38 --------ALL STOP TIME OUT------ 12:22:38 Final Timeout: patient, procedure, and site verified with staff and physician. All members of the team are in agreement. 12:22:41 Right groin site verified by team. 12:22:46 Physical assessment completed. ASA score P 2 - A patient with mild systemic disease as per Sonu Perez MD. 12:22:50 Sedation plan: IV Moderate Sedation Versed, Fentanyl 12::23 Versed 1 mg I.V. was given by Kisha Block RN; for sedation; 12::28 Fentanyl 50 mcg I.V. was given by Kisha Block RN; for sedation; 12:27:59 Procedure started. 12:28:04 Local anesthetic to right femoral artery with Lidocaine 2% by Sonu Perez MD.INITIAL ACCESS ONLY 12:28:18 Terumo 7Fr Flatwoods Sheath opened to sterile field. 12:28:19 Medtronic Launcher 7Fr EBU 3.5 guide catheter opened to sterile field. 12:29:36 Versed 1 mg I.V. was given by Kisha Block RN; for sedation; 12:29:36 A 7 Fr Short sheath was inserted into the Right Femoral artery 12::39 Fentanyl 50 mcg I.V. was given by Kisha Block RN; for sedation; 12::52 ACC PCI Site: mLAD has 90% stenosis. 12::57 ACC Pre-intervention BANDAR Flow is 3. 12:30:04 7 Fr EBU 3.5 guide catheter was inserted over the wire 12:34:58 Guide Catheter removed. unable to cannulate vessel. 12:35:23 Medtronic Launcher 6Fr EBU 3.0 guide catheter opened to sterile field. 12:35:33 6 Fr EBU 3.0 guide catheter was inserted over the wire 12:36:34 Choice PT XS wire advanced. 12:36:35 Heparin Bolus 4000 units I.V. was given by Kisha Block RN; for anticoagulation; verified with dr perez 12:36:44 Babb [facility] [place] Choice PT Extra Support J 300cm .014 gu opened to sterile field. 12:39:17 Wire advanced across lesion. 12:39:54 Inflation number: 1 A Babb Sci [place] 3.0 X 12 balloon was prepped and advanced across the Mid LAD, then inflated to 13 JUSTIN for 0:10 (min:sec). 12:40:44 Multiple inflations made at 13 Atms. 12:40:47 Balloon removed over the wire. 12:42:27 Inflation Number: 2 A Medtronic Resolute 3.0 X 9 stent was prepped and advanced across the Mid LAD. The stent was deployed at 17 JUSTIN for 0:10 (min:sec). 12:43:04 Cordis 7Fr Exoseal opened to sterile field. 12:43:08 Stent catheter was removed intact over wire. 12:43:08 Wire removed. 12:43:10 Guide catheter removed. 12:43:12 ACC Post-intervention BANDAR Flow is 3. 12:43:39 Sheath removed intact; hemostasis achieved with Exoseal to the Right Femoral artery. 12:43:42 Procedure ended.(Physican Out) 12:44:43 Fluoroscopy time 04.90 minutes. 12:44:47 Fluoroscopy dose: 514 mGy 12:44:47 Flurop Dose total: 514 12:44:57 Contrast amount:Isovue 300 45ml. 12:44:59 Sharps counted by scrub and verified by R.N. 12:45:01 Insertion/operative site no bleeding no hematoma. 12:45:04 Post-op/insertion site Right Femoral artery dressed using a 4 x 4 and Tegaderm. 12:45:05 Post Procedure Pulses reassessed and unchanged 12:45:08 Post-procedure physical assessment completed. ASA score P 2 - A patient with mild systemic disease as per Sonu Perez MD. 12:45:10 Post procedure rhythm: unchanged. 12:45:13 Estimated blood loss: 10 ml 12:45:14 Post procedure instruction explained to patient.Patient verbalizes understanding. 12:45:15 Patient needs reinforcement of post procedure teaching. 12:45:23 Procedure Complication : No complications 12:46:01 Procedure and supply charges have been captured, reviewed, submitted and are correct. 12:50:22 Vital chart was stopped 12:50:23 See physician's report for complete and final results. 12:50:25 Report given to Post Procedure Room. 12:50:27 Patient transfered to Post Procedure Room with Stretcher. 12:50:29 Procedure ended. 12:50:29 Full Disclosure recording stopped 12:50:37 ACC-PCI Only Patient was given prescriptions, or instructed by Sonu Perez MD to start/continue the following medications upon discharge: Aspirin, Plavix 12:50:40 End room use (Document Last) Intervention Summary Intervention Notes Time ActionType Lesion and Equipment Action# Pressure Duration Attributes Used 12:39:54 Inflate Mid LAD Babb 1 13 00:10 balloon Sci [place] 3.0 X 12 balloon 12:42:27 Place stent Mid LAD Medtronic 2 17 00:10 Resolute 3.0 X 9 stent Device Usage Item Name Manufacture Quantity Catalog Number Hospital Part Current Critical access hospital Lot# / Charge Number Stock Stock Serial# Code Tegaderm 4 3M 1 [id number] [id number] [id number] [id number] 5 x 4 Acist Acist 1 73992 580228 104975 390842 5 Manifold Medical Systems Inc Acist Acist 1 58778 349699 440284 316218 20 Syringe Medical Systems Inc Acist Hand Acist 1 11569 868707 522435 411121 5 Control Medical Systems Inc Bag Microtek 1 2002S 097809 44324 790255 5 DecFidelithon Systems Medical Inc. Cardinal Cardinal [address] 883375 33350 735764 [address] St Unruly 1 335407 191261 210985 085171 30 260cm J .035 wire Merit Merit 1 UN8724 558934 889707 758283 15 TrackRohPileus Software Medical Inflation Kit Terumo 7Fr Terumo 1 KDS389 085395 844570 037323 5 Flatwoods Sheath Medtronic Medtronic 1 [id number] 647462 089234 654741 0 Launcher 7Fr EBU 3.5 guide catheter Medtronic Medtronic 1 [id number] 141368 93955 478543 0 Launcher 6Fr EBU 3.0 guide catheter Babb Sci Babb 1 [id number] 231327 20190428 281101 5 Choice PT Scientific Extra Support J 300cm .014 gu Babb Sci Babb 1 [id number] 454109 286421 573797 1 [id number] Cleburne Scientific 3.0 X 12 balloon Medtronic Medtronic 1 [id number] 612791 970310 2 [id number] Resolute 3.0 X 9 stent Cordis 7Fr Cardinal 1 EX700 913747 118988 984163 5 [facility] Signature Audit Lookout Stage Time Signature Unsigned Intra-Procedure 11/20/2016 Tye Jama 12:51:01 PM RT(R) Signatures Monitor : Tye Jama RT Signature : Date : Time : [place] [id number] [place] [address]
[~2016-11-20 08:59] MED LIST: ECOTRIN325 MG PO; METOPROLOL TART25 MG PO; PLAVIX75 MG PO; PRAVACHOL20 MG PO
[2016-11-20 09:45] LABS: BASOPHILS 0.6 % (0.0-2.0); EOSINOPHILS 6.6 % (0-7); HEMATOCRIT 41.4 % (42.0-54.0); IMMATURE GRANULOCYTES 0.2 % (0-5); LYMPHOCYTES 20.1 % (15-50); MCH 30.8 pg (26.0-34.0); MCHC 33.8 g/dL (31.0-37.0); MEAN PLATELET VOLUME 10.3 fL (7.4-10.4); MONOCYTES 13.9 % (2-11); NEUTROPHILS 58.6 % (40-80); RBC 4.55 10x6/uL (4.20-6.10); RDW 12.4 % (11.5-14.5); WBC 6.2 10x3/uL (4.8-10.8)
[2016-11-20 09:53] LABS: ANION GAP 11.4 mmol/L (8-16); CALCIUM 8.9 mg/dL (8.5-10.1); CARBON DIOXIDE 27.7 mmol/L (21.0-32.0); CREATININE - SERUM 1.1 mg/dL (0.6-1.3); POTASSIUM - SERUM 4.1 mmol/L (3.5-5.1)
[2016-11-20 10:04] VITALS: BP 128/78; Ht 172.7 cm; Wt 79.5 kg
[2016-11-20 10:04] LABS: PLATELET COUNT 156 10x3/uL (130-400)
--- NOTE | 2016-11-20 13:20 | NUR ---
RESTING IN BED QUIETLY, VSS. ROOM AIR, NO DISTRESS NOTED. NO C/O NAUSEA OR CHEST PAIN. RIGHT GROIN DRSG CDI, NO HEMATOMA NOTED. WILL CONTINUE TO MONITOR.
--- NOTE | 2016-11-20 13:50 | NUR ---
SPEAKING WITH AT BEDSIDE, NO C/O AT THIS TIME. VSS. RIGHT GROIN DRSG CDI.
--- NOTE | 2016-11-20 14:06 | NUR ---
URINAL GIVEN. VOIDED 300CC OF CLEAR YELLOW URINE.
--- NOTE | 2016-11-20 14:36 | NUR ---
RESTING IN BED QUIETLY, VSS. NO C/O NAUSEA OR CHEST PAIN. WILL CONTINUE TO MONITOR.
--- NOTE | 2016-11-20 15:07 | NUR ---
SANDWICH SERVED, FEEDING SELF WITH NO C/O NAUSEA.
--- NOTE | 2016-11-20 15:16 | NUR ---
REPORT CALLED TO OUTPATIENT AND PT TRANSFERRED TO ROOM 2514.
--- NOTE | 2016-11-20 15:17 | NUR ---
RIGHT GROIN CDI, NO HEMATOMA NOTED, VSS STABLE ON TRANSFER.
--- NOTE | 2016-11-20 15:52 | NUR ---
1530 TO ROOM AWAKE AND ALERT , NO DISTRESS NOTED AT THIS TIME FAMILY AT BEDSIDE
--- NOTE | 2016-11-20 17:50 | NUR ---
1650 IV DC WITH CATHER TIP INTACT
--- NOTE | 2016-11-26 14:16 | OP ---
PATIENT NAME: SOBIA MORRIS MEDICAL RECORD: [id number] :29 LOCATION:D.CAT ADMISSION DATE: SURGEON: KATHARINA ANGULO MD DATE OF OPERATION: 11/20/2016 PROCEDURES: 1. PTCA stent LAD. 2. Selective coronary angiography. INDICATION: Angina and coronary artery disease. PROCEDURE IN DETAIL: After informed consent was obtained and after a detailed explanation of the risks, benefits as well as alternative therapies, the patient elected to proceed with angiogram and angioplasty. The right femoral area was prepped and draped in normal sterile fashion. The right femoral artery was re-cannulated via modified Seldinger technique with placement of 7-Nepali sheath. All catheters exchanged through this sheath. FINDINGS: The left anterior descending has a 90% stenosis at the ostium. This was addressed with a 3.0 x 9 mm Resolute stent. Result was 0% residual stenosis. OVERALL IMPRESSION: Successful percutaneous transluminal coronary angioplasty stent of the left anterior descending going from 90% initial stenosis to 0% residual. TRANSINT:[id number] Voice Confirmation ID: [id number] DOCUMENT ID: [id number] KATHARINA ANGULO MD at 1416 CC: [id number] DICTATION DATE: 11/20/16 1246 METEOROLOGICAL ENGINEER: 11/20/16 1258 DEP CLI 11/20/[address] [address]
--- NOTE | 2016-11-26 14:16 | HP ---
PATIENT: SOBIA MORRIS MEDICAL RECORD: [id number] ACCOUNT: [id number] LOCATION:[facility] : 29 ADMISSION DATE: 11/20/16 HISTORY AND PHYSICAL EXAMINATION ADMITTING DIAGNOSES: 1. Angina. 2. Coronary artery disease. 3. Recent percutaneous transluminal coronary angioplasty stent of the left main and right coronary artery with concomitant disease of the left anterior descending. 4. Hypertension. HISTORY OF PRESENT ILLNESS: Mr. Morris presents with anginal symptomatology, found to have severe 3-vessel coronary artery disease, underwent successful PTCA stent of the left circumflex, left main, and RCA, now has significant critical disease to the LAD and is brought back for PTCA stent of the LAD in a staged fashion. PHYSICAL EXAMINATION: GENERAL APPEARANCE: Well-nourished, well-developed, appears stated age. Level of distress, comfortable. PSYCHIATRIC: Mental status, alert, normal affect. Orientation, oriented to time, place and person. EYES: Lids and conjunctiva, noninjected. No discharge, no pallor. ENT: Lips, teeth, gums, normal dentition. Oropharynx, no cyanosis, no pallor. NECK: Carotid arteries, bilateral normal upstroke, no bruits, no thrills. JUGULAR VEINS: No jugular venous pressure or distention. CERVICAL LYMPH NODES: Nontender, nonenlarged. THYROID: Not enlarged. Nontender. No nodules. LUNGS: Respiratory effort, unlabored. CHEST: Normal curvature. No thoracic deformity. No chest wall tenderness. Percussion, resonant. Auscultation, clear. No wheezes, no rales, no rhonchi. CARDIOVASCULAR: Precordial exam, nondisplaced. No heaves or pericardial thrills. Rate and rhythm, regular. Heart sounds, normal S1, normal S2. No S3, no gallop, no rub. Systolic murmur, not heard. Diastolic murmur, not heard. EXTREMITIES: No cyanosis, no edema. Peripheral pulses, full and equal in all extremities, except as noted. No bruits appreciated. ABDOMEN: Soft, nondistended. Normal aorta. No bruit. Nontender. No masses. Liver, nontender, no hepatomegaly. Spleen, nontender, no splenomegaly. MUSCULOSKELETAL: No joint tenderness. No joint swelling. No erythema. NEUROLOGICAL: Normal gait, normal strength, normal tone. SKIN: Warm and dry. REVIEW OF SYSTEMS: The patient reports easy bruising but reports no swollen glands. The patient reports no fever, no night sweats, no significant weight gain, no significant weight loss. No significant exercise tolerance. The patient reports no dry eyes, no irritation, no vision change. Patient reports no difficulty hearing and no ear pain. Patient reports no frequent nose bleeds or nose and sinus problems. Patient reports on arm pain on exertion. No shortness of breath while lying down. No history of heart murmur. Patient reports no cough, no wheezing or coughing up blood. Patient reports no abdominal pain, no vomiting. Normal appetite. No diarrhea and not vomiting blood. No nausea and no constipation. Patient reports no incontinence. No difficulty urinating. No hematuria. No increased frequency. Patient reports HISTORY AND PHYSICAL [id number] SOBIA MORRIS no muscle aches. No weakness, no arthralgias, no back pain. No swelling of the extremities. Patient reports no abnormal mole, no jaundice, no rashes. Reports no loss of consciousness. No weakness and no numbness. No seizures, dizziness, or headaches. The patient reports no depression, no sleep disturbance, feeling safe in a relationship and no alcohol abuse. Patient reports on fatigue. Reports no runny nose or sinus pressure. No itching, no hives, and no frequent sneezing. OVERALL IMPRESSION: Anginal symptomatology with left anterior descending disease. We will proceed with percutaneous transluminal coronary angioplasty stent of the left anterior descending. TRANSINT:[id number] Voice Confirmation ID: [id number] DOCUMENT ID: [id number] KATHARINA ANGULO MD at 1416 CC: [id number] DICTATION DATE: 11/20/16 0859 MARKETING OPERATIONS INTERN: 11/20/16 0906 DEP CLI 11/20/16 [facility] [address] [place] [address]
== END 2016-11-20 17:58 | disposition home or self-care (01) ==
LOC: D.CATH 08:59
PROVIDERS: Internal Medicine Interventional Cardiology
DX: I25.119 Atherosclerotic heart disease of native coronary artery with unspecified angina pectoris (principal); I10 Essential (primary) hypertension; Z95.5 Presence of coronary angioplasty implant and graft

== ENCOUNTER 2017-12-05 14:01 | Observation (INO) | payer MEDICARE, BC ==
[~2017-12-05] VITALS: Ht 182.9 cm; Wt 81.0 kg
--- NOTE | ~2017-12-05 | OP ---
PATIENT NAME: SOBIA MORRIS MEDICAL RECORD: [id number] :28 LOCATION:D.M2 D.2117 ADMISSION DATE:12/05/17 SURGEON: KATHARINA ANGULO MD DATE OF OPERATION: 12/06/2017 PROCEDURES: 1. PTCA stent of left circumflex. 2. Left heart catheterization. 3. Selective coronary angiography. 4. Left ventriculogram. INDICATION: Angina and coronary artery disease. PROCEDURE IN DETAIL: After informed consent was obtained and after a detailed explanation of the risks, benefits as well as alternative therapies, the patient was elected to proceed with angiogram and angioplasty. The right femoral area is prepped and draped in normal sterile fashion. The right femoral artery was cannulated via modified Seldinger technique with placement of 6-Burmese sheath. All catheters exchanged through this sheath. FINDINGS: The left ventriculogram was performed in standard 30-degree BEAL view, reveals good cardiac wall motion throughout all segments. Overall ejection fraction estimated 60%. SELECTIVE CORONARY ANGIOGRAPHY: 1. Left main showed no significant angiographic disease. 2. Left anterior descending has mild irregularities, but no flow-limiting stenosis. 3. The left circumflex has a 70% to 80% stenosis in proximal vessel. 4. Right coronary has moderate irregularities, but no flow-limiting stenosis. PTCA STENT OF THE LEFT CIRCUMFLEX: The stent used was a 3.0 x 9 mm Integrity. Result was 0% residual stenosis. OVERALL IMPRESSION: Successful percutaneous transluminal coronary angioplasty stent of the left circumflex going from 80% initial stenosis to 0% residual. TRANSINT:[id number] Voice Confirmation ID: [id number] DOCUMENT ID: [id number] KATHARINA ANGULO MD at 1800 CC: [id number] DICTATION DATE: 12/06/17 1419 MANAGER PAYER: 12/06/17 1439 [place] [address]
--- NOTE | ~2017-12-05 | HEMODYNAMI ---
PATIENT:SOBIA MORRIS MEDICAL RECORD: [id number] : 28 [id number] ADMISSION DATE: 12/05/17 Generatedon:12/06/201714:23 Patient name: SOBIA MORRIS Patient #: [id number] : 1930 Date of study: 12/06/2017 Page: Of Hemodynamic Procedure Report Patient Data Patient Demographics Procedure consent was obtained First Name: SOBIA Gender: Male Last Name: ALEXANDRA : 1930 [facility] Initial: Faheem Age: 87 year(s) Patient #: [id number] Race: SSN: [id number] Additional ID: [id number] Contact details [address]: [address] [place] [address] State: [place] City: [place] Zip code: [address] Past Medical History History of disease Date Diagnosis Comments CAD Allergies: No known allergies Admission Admission Data Admission Date: 12/05/2017 Admission Time: 16:20 Room #: .2117 Height (in.): 71.65 BSA: 2 (m2) Height (cm.): 182 BMI: 23.85 (kg/m2) Weight (lbs.): 174.17 Weight (kg.): 79 Lab Results Lab Result Date: 12/06/2017 Lab Result Time: 0:00 Biochemistry Name Units Result Min Max BUN mg/dl 20 --(----)*- 7 18 Creatinine mg/dl 1.3 --(---*)-- 0.6 1.3 CBC Name Units Result Min Max Hemoglobin g/dl 14.2 --(*---)-- 13.5 17.5 Procedure Procedure Types Cath Procedure Diagnostic Procedure [facility] w/Coronaries PCI Procedure Coronary Stent Coronary Stent Initial Miscellaneous Procedures Moderate Sedation up to 15 minutes Procedure Description Procedure Date Procedure Date: 12/06/2017 Procedure Start Time: 13:48 Procedure End Time: 14:22 Procedure Staff Name Function Sonu Perez MD Performing Physician Jackie Her RT Monitor Ashely Pacheco RT Scrub Gloria Caro RN Nurse Procedure Data Cath Procedure Fluoroscopy Diagnostic fluoroscopy Total fluoroscopy Time: 9.8 time: 9.8 min min Diagnostic fluoroscopy Total fluoroscopy dose: dose: 1361 mGy 1361 mGy Contrast Material Contrast Material Type Amount (ml) Isovue 300 120 Entry Location Entry Primary Successful Side Size Upsize Upsize Entry Closure Succes sful Closure Location (Fr) 1 (Fr) 2 (Fr) Remarks Device Remarks Femoral Right 5 Fr 6 Fr Exoseal artery Short Estimated blood loss: 10 ml Diagnostic catheters Device Type Used For End Catheter Placement MULTIPACK Pigtail 5 Fr Procedure catheter MULTIPACK JL 4.0 5Fr Procedure catheter MULTIPACK 3DRC 5Fr Procedure catheter Procedure Complications No complications Procedure Medications Medication Administration Route Dosage 0.9% NaCl I.V. 100 ml/hr Oxygen NC 2 l/min Lidocaine 2% added to field 20 Heparin Flush Bag added to field 2 bags (1000units/500ml NS) Fentanyl I.V. 50 mcg Versed I.V. 1 mg Versed I.V. 1 mg Fentanyl I.V. 50 mcg Heparin Bolus I.V. 4000 units Integrilin (Bolus I.V. 7.3 ml 2mg/ml) Plavix P.O. 300 mg Versed I.V. 1 mg Versed I.V. 1 mg Hemodynamics Rest BSA: 2 (m2) O2 Consumption: Estimated: 272 (ml/min) O2 Consumption indexed: Barbara mated:136 (ml/min/m) Pre Cath Intra NCS Post Cath Vital Signs Time Heart Resp SPO2 etCO2 NIBP Rhythm Pain Sedation Rate (ipm) (%) (mmHg) (mmHg) Status Level (bpm) 13:32:29 69 19 96 31.4 128/70(95) NSR 0 (11) 10(A) , No pain 13:36:47 71 15 99 11.9 125/61(95) NSR 0 (11) 10(A) , No pain 13:40:59 66 16 99 0.7 123/68(92) NSR 0 (11) 10(A) , No pain 13:45:18 66 16 98 30.6 119/52(84) NSR 0 (11) 10(A) , No pain 13:49:27 70 16 96 0 100/57(73) NSR 0 (11) 10(A) , No pain 13:53:35 69 14 94 26.9 105/55(79) NSR 0 (11) 9(A) , No pain 13:57:45 68 16 99 23.9 112/53(89) NSR 0 (11) 9(A) , No pain 14:01:55 70 14 99 26.1 106/54(90) NSR 0 (11) 10(A) , No pain 14:06:05 70 17 99 16.4 121/53(93) NSR 0 (11) 9(A) , No pain 14:10:16 71 15 100 22.4 110/51(88) NSR 0 (11) 9(A) , No pain 14:14:26 71 16 99 19.4 114/59(88) NSR 0 (11) 10(A) , No pain 14:18:29 0 No Cuff NSR 0 (11) 10(A) , No pain 14:22:29 0 No Cuff NSR 0 (11) 10(A) , No pain Medications Time Medication Route Dose Verified Delivered Reason Not es Effectiveness by by 13:26:46 0.9% NaCl I.V. 100ml/hr Sonu Castro used for Chris Caro RN procedure 13:26:57 Oxygen NC 2 l/min Sonu Castro Per physician Chris Caro RN 13:27:05 Lidocaine 2% added 20ml Sonu Ascencio for local to vial Chris Perez MD anesthetic field 13:27:14 Heparin Flush added 2 bags Sonu Ascencio used for Bag to Chris Perez MD procedure (1000units/500ml field NS) 13:46:59 Fentanyl I.V. 50 mcg Sonu Castro for sedation Chris Caro RN 13:47:10 Versed I.V. 1 mg Sonu Castro for sedation Chris Caro RN 13:55:11 Heparin Bolus I.V. 4000 Sonu Castro for rashel ified units Chris Caro RN anticoagulation by 13:55:32 Integrilin I.V. 7.3 ml Sonu Castro for rashel ified (Bolus 2mg/ml) Chris Caro RN antiplatelet by therapy waste 2.7ML 13:56:05 Versed I.V. 1 mg Sonu Castro for sedation Chris Caro RN 13:56:10 Fentanyl I.V. 50 mcg Sonu Castro for sedation Chris Caro RN 13:57:01 Plavix P.O. 300 mg Sonu Castro for rashel ified Chris Caro RN antiplatelet by therapy 14:01:08 Versed I.V. 1 mg Sonu Castro for sedation Chris Caro RN 14:04:18 Versed I.V. 1 mg Sonu Castro for sedation Chris Caro RN Procedure Log Time Note 13:14:42 Patient Height : 71.65 inches 13:14:45 Patient Weight : 174.17 lbs 13:15:13 Lab Result : BUN 20 mg/dl 13:15:13 Lab Result : Creatinine 1.3 mg/dl 13:15:13 Lab Result : Hemoglobin 14.2 g/dl 13:20:05 Diagnostic Cath status Elective 13:20:11 Ashely Pacheco RT(R) sent for patient. Start room use. 13:20:12 Time tracking: Regular hours 13:20:17 Plan of Care:Hemodynamics will remain stable., Cardiac rhythm will remain stable., Comfort level will be maintained., Respiratory function will remain adequate., Patient/ family verbilizes understanding of procedure., Procedure tolerated without complication., Recovers from procedure without complications.. 13:22:25 Patient received from PCU to CCL 2 Alert and oriented. Tansferred to table in Supine position. 13:22:27 Warm blankets applied, and prema hugger turned on for patient comfort. 13:22:28 Correct patient and procedure confirmed by team. 13:22:32 Signed procedure consent form obtained from patient. 13:26:46 0.9% NaCl 100ml/hr I.V. was administered by Gloria Caro RN; used for procedure; 13::57 Oxygen 2 l/min NC was administered by Gloria Caro RN; Per physician; 13:27:05 Lidocaine 2% 20ml vial added to field was administered by Sonu Perez MD; for local anesthetic; 13:27:14 Heparin Flush Bag (1000units/500ml NS) 2 bags added to field was administered by Sonu Perez MD; used for procedure; 13:31:25 Vital chart was started 13:32:52 H&P Date Dictated: 12/06/2017 Within 30 days and on chart.. 13:32:54 Pre-procedure instructions explained to patient. 13:32:56 Family in waiting room. 13:32:59 Patient NPO since Midnight. 13:33:12 Patient allergic to No known allergies 13:33:24 Is the patient allergic to Iodine/contrast media? No. 13:33:26 Was the patient premedicated? Yes 13:33:29 Is patient on blood thinner?Yes 13:33:32 ACC The patient was administered the following blood thiners within the last 24 hours: ACCPlavix 13:33:34 Patient diabetic? No. 13:33:43 Snore? No 13:33:44 Sleep apnea? No 13:33:53 Patient pain scale 0/10 ?. 13:34:02 IV patent on arrival in left hand with 0.9% NaCl at KVO. 13:34:10 Lab results completed and on chart. 13:34:14 Right groin area was prepped with chlora-prep and draped in sterile fashion 13:34:23 Alarms reviewed by R. N. 13:34:24 Sharps counted by scrub and verified by R.N. 13:45:59 Zero performed for pressure channel P1 13:46:02 - 13:46:04 Physician arrived 13:46:07 --------ALL STOP TIME OUT------ 13:46:07 Final Timeout: patient, procedure, and site verified with staff and physician. All members of the team are in agreement. 13:46:10 Right groin site verified by team. 13:46:16 Physical assessment completed. ASA score P 2 - A patient with mild systemic disease as per Sonu Perez MD. 13:46:21 Sedation plan: IV Moderate Sedation Medication:Versed, Fentanyl 13:46:47 Use device set Femoral Dx 13:46:48 ACIST Syringe (39715) opened to sterile field. 13:46:48 Bag Decanter (2001S) opened to sterile field. 13:46:49 Medline Cath Pack ([id number]) opened to sterile field. 13:46:49 SHEATH 5FR [place] (AFV841) opened to sterile field. 13:46:50 DIAGNOSTIC WIRE .035 260cm J wire (116334) opened to sterile field. 13:46:51 ACIST Hand Control (69714) opened to sterile field. 13:46:51 ACIST Manifold (32285) opened to sterile field. 13:46:52 DIAGNOSTIC Multipack 5Fr catheter set (XZ0916) opened to sterile field. 13:46:53 Tegaderm 4 x 4 (1626W) opened to sterile field. 13:46:54 PERCUTANEOUS ENTRY 19GA needle opened to sterile field. 13:46:59 Fentanyl 50 mcg I.V. was administered by Gloria Caro RN; for sedation; 13:47:10 Versed 1 mg I.V. was administered by Gloria Caro RN; for sedation; 13:48:21 Procedure started. 13:48:22 Full Disclosure recording started 13:48:25 Local anesthetic to right femoral artery with Lidocaine 2% by Sonu Perez MD.INITIAL ACCESS ONLY 13:48:39 A 5 Fr sheath was inserted into the Right Femoral artery 13:49:21 A MULTIPACK Pigtail 5 Fr catheter was advanced over the wire and used for Procedure. 13:50:56 LV angiography performed. 13:51:26 LV gram done using BEAL 13:51:42 EF : 30 % 13:51:46 Catheter removed. 13:51:54 A MULTIPACK JL 4.0 5Fr catheter was advanced over the wire and used for Procedure. 13:53:10 LCA angiography performed. 13:54:02 Catheter removed. 13:54:11 A MULTIPACK 3DRC 5Fr catheter was advanced over the wire and used for Procedure. 13:54:18 RCA angiography performed. 13:54:26 Catheter removed. 13:55:05 Sheath upsized to a 6 Fr Short. 13:55:11 Heparin Bolus 4000 units I.V. was administered by Gloria Caro RN; for anticoagulation; verified by 13:55:32 Integrilin (Bolus 2mg/ml) 7.3 ml I.V. was administered by Gloria Caro RN; for antiplatelet therapy; verified by waste 2.7ML 13:55:34 6 Fr xb4 guide catheter was inserted over the wire 13:55:43 pt extra wire advanced. 13:56:05 Versed 1 mg I.V. was administered by Gloria Caro RN; for sedation; 13:56:10 Fentanyl 50 mcg I.V. was administered by Gloria Caro RN; for sedation; 13:57:01 Plavix 300 mg P.O. was administered by Gloria Caro RN; for antiplatele t therapy; verified by 13:57:51 Guide Catheter removed. unable to cannulate vessel. 13:58:38 GUIDE 6FR EBU 4.0 guide catheter (UG5XIB12) opened to sterile field. 13:58:46 6 Fr EBU4 guide catheter was inserted over the wire 13:58:54 Guide Catheter removed. unable to cannulate vessel. 13:59:01 SHEATH 6FR [place] (WKI414) opened to sterile field. 13:59:02 INFLATOR Merit BasixCompak (AF5818) opened to sterile field. 13:59:03 CHOICE PT Extra Support 182cm wire ([id number]) opened to sterile field. 13:59:37 GUIDE 6FR EBU 3.5 catheter (AD2XEV51) opened to sterile field. 13:59:55 6 Fr EBU 3.5 guide catheter was inserted over the wire 14:00:02 choice pt ex wire advanced. 14:01:08 Versed 1 mg I.V. was administered by Gloria Caro RN; for sedation; 14:02:04 Guide Catheter removed. unable to cannulate vessel. 14:02:25 GUIDE 6FR JL 4.0 catheter (DU8MK40) opened to sterile field. 14:02:43 6 Fr JL4 guide catheter was inserted over the wire 14:03:14 extra support wire advanced. 14:03:18 Wire advanced across lesion. 14:04:18 Versed 1 mg I.V. was administered by Gloria Caro RN; for sedation; 14:06:16 Inflation number: 1 A EUPHORA 3.0 x 15 Balloon ([id number]) was prepped and advanced across the Prox CX, then inflated to 13 JUSTIN for 0:10 (min:sec). 14:06:57 Inflation number: 2 The EUPHORA 3.0 x 15 Balloon ([id number]) was reinflated across the Prox CX, to 17 JUSTIN for 0:10 (min:sec). 14:07:28 Inflation number: 1 The EUPHORA 3.0 x 15 Balloon ([id number]) was reinflated across the Mid CX, to 13 JUSTIN for 0:10 (min:sec). 14:09:18 The INTEGRITY RX 3.0 x 26 stent ([id number]) was advanced then removed because of failure to cross lesion 14:09:52 3.0x26 stent unable to cross lesion 14:11:06 Inflation Number: 3 A INTEGRITY RX 3.0 x 09 stent ([id number]) was prepped and advanced across the Prox CX. The stent was deployed at 17 JUSTIN for 0:00 (min:sec). 14:11:41 Inflation number: 4 The stent balloon was then re-inflated across the Prox CX to 0 JUSTIN for 0:00 (min:sec). 14:11:52 EXOSEAL 6Fr (EX600) opened to sterile field. 14:12:09 Stent catheter was removed intact over wire. 14:12:10 Wire removed. 14:12:10 Guide catheter removed. 14:12:23 Sheath removed intact; hemostasis achieved with Exoseal to the Right Femoral artery. 14:12:25 Procedure ended.(Physican Out) 14:13:53 Fluoroscopy time 09.80 minutes. 14:13:57 Flurop Dose total: 1361 14:13:57 Fluoroscopy dose: 1361 mGy 14:14:07 Contrast amount:Isovue 300 120ml. 14:14:08 Sharps counted by scrub and verified by R.N. 14:14:10 Insertion/operative site no bleeding no hematoma. 14:14:18 FEMSTOP Gold (M57626) opened to sterile field. 14:14:34 Post right femoral artery:bleeding 14:14:40 Femstop placed over the right femoral artery at 88 mmHg. Hemostasis achieved. 14:14:41 Post Procedure Pulses reassessed and unchanged 14:14:45 Post-procedure physical assessment completed. ASA score P 2 - A patient with mild systemic disease as per Sonu Perez MD. 14:14:48 Post procedure rhythm: unchanged. 14:14:50 Estimated blood loss: 10 ml 14:14:51 Post procedure instruction explained to patient.Patient verbalizes understanding. 14:14:52 Patient needs reinforcement of post procedure teaching. 14:19:38 Procedure type changed to Cath procedure, Diagnostic procedure, LHC, LH C w/Coronaries, PCI procedure, Coronary Stent, Coronary Stent Initial, Miscellaneous Procedures, Moderate Sedation up to 15 minutes 14:20:33 Procedure and supply charges have been captured, reviewed, submitted an d are correct. 14:22:40 Procedure Complication : No complications 14:22:41 Vital chart was stopped 14:22:42 See physician's report for complete and final results. 14:22:45 Report given to [facility]. 14:22:48 Patient transfered to [facility] with Bed. 14:22:50 Procedure ended. 14:22:50 Full Disclosure recording stopped 14:22:53 End room use (Document Last) 14:22:58 ACC-PCI Only Patient was given prescriptions, or instructed by Sonu Perez MD to start/continue the following medications upon discharge: Plavix Intervention Summary Intervention Notes Time ActionType Lesion and Equipment Action# Pressure Duration Attributes Used 14:06:16 Inflate Prox CX EUPHORA 3.0 1 13 00:10 balloon x 15 Balloon ([id number]) 14:06:57 Reinflate Prox CX EUPHORA 3.0 2 17 00:10 balloon x 15 Balloon ([id number]) 14:07:28 Reinflate Mid CX EUPHORA 3.0 1 13 00:10 balloon x 15 Balloon ([id number]) 14:09:18 Discard INTEGRITY RX Stent 3.0 x 26 stent ([id number]) 14:11:06 Place stent Prox CX INTEGRITY RX 3 17 00:00 3.0 x 09 stent ([id number]) 14:11:41 Reinflate Prox CX INTEGRITY RX 4 0 00:00 stent 3.0 x 09 balloon stent ([id number]) Device Usage Item Name Manufacture Quantity Catalog Number Hospital Part Current Mini mal Lot# / Charge Number Stock Stock Serial# Code ACIST Acist 1 55376 357705 940703 076974 20 Syringe Sumpto (49458) [employer] Bag Decanter Microtek 1 470388 77337 354168 5 () Medical Inc. Medline Cath Cardinal 1 [id number] 363261 73140 384398 5 iLike Health ([id number]) SHEATH 5FR Terumo 1 UXH516 298147 658511 386553 40 [place] (ZJE551) DIAGNOSTIC St Unruly 1 747807 249998 825052 478607 30 WIRE .035 260cm J wire (478852) ACIST Hand Acist 1 80559 008935 126407 160121 5 Control Medical (80692) Systems Inc ACIST Acist 1 10531 908483 564180 615185 5 Manifold Medical (97622) Systems Inc DIAGNOSTIC Cardinal 1 YJ2903 701742 84072 579990 30 MultipKeoya [employer] 5Fr catheter set (AE6328) Tegaderm 4 x 3M 1 1626W 299402 931231 150910 5 4 (1626W) PERCUTANEOUS [facility] 1 A29626 091261 680018 5 ENTRY 19GA needle MULTIPACK Cardinal 1 751949 5 Pigtail 5 Fr Health catheter MULTIPACK JL Cardinal 1 257835 5 4.0 5Fr Health catheter MULTIPACK [place] 1 689014 5 3DRC 5Fr Health catheter GUIDE 6FR Medtronic 1 [id number] 183343 91064 273037 1 EBU 4.0 guide catheter (IN7XEE93) SHEATH 6FR Terumo 1 FIZ177 520946 563963 743700 40 [place] (WXB888) INFLATOR [facility] 1 QH7439 478045 119590 873433 15 [facility] (EN8900) CHOICE PT [place] 1 [id number] 221058 446192 050620 5 Extra Scientific Support 182cm wire ([id number]) GUIDE 6FR Medtronic 1 ST4HYF91 781063 86843 201951 3 EBU 3.5 catheter (SL5LPF17) GUIDE 6FR JL Medtronic 1 ZF9PL44 238649 99636 880934 1 4.0 catheter (GI4PL58) EUPHORA 3.0 Medtronic 1 [id number] 306361 724286 496237 5 [id number] x 15 Balloon (VIY4001Y) INTEGRITY RX Medtronic 1 [id number] 395596 558636 282529 5 [id number] 3.0 x 09 stent ([id number]) EXOSEAL 6Fr Cardinal 1 EX600 741310 006259 823265 10 (EX600) Health FEMSTOP Gold St Unruly 1 P58041 081011 263331 074912 5 (A42890) INTEGRITY RX Medtronic 1 [id number] 232251 341316 844392 5 [id number] 3.0 x 26 stent ([id number]) Signature Audit [place] Stage Time Signature Unsigned Intra-Procedure 12/06/2017 Jackie Her 2:23:33 PM RT(R) Signatures Monitor : Jackie Her Signature : RT Date : Time : [id number] [place] [address]
[2017-12-05 14:28] LABS: BASOPHILS 0.4 % (0-2); EOSINOPHILS 2.5 % (0-7); HEMOGLOBIN 14.2 g/dL (13.5-17.5); IMMATURE GRANULOCYTES 0.1 % (0-5); LYMPHOCYTES 34.2 % (15-50); MCH 31.5 pg (26.0-34.0); MCHC 33.8 g/dL (31.0-37.0); MCV 93.1 fL (80.0-100.0); MEAN PLATELET VOLUME 10.5 fL (7.4-10.4); NEUTROPHILS 49.8 % (40-80); PLATELET COUNT 128 10x3/uL (130-400); RBC 4.51 10x6/uL (4.20-6.10); RDW 12.5 % (11.5-14.5); WBC 7.8 10x3/uL (4.8-10.8)
[2017-12-05 15:04] LABS: ALBUMIN 3.5 g/dL (3.4-5.0); ALKALINE PHOSPHATASE 53 U/L (46-116); ALT (SGPT) 14 U/L (10-68); BILIRUBIN - TOTAL 0.96 mg/dL (0.2-1.3); CALC OSMOLALITY 282 mosm/kg (275-300); CALCIUM 9.4 mg/dL (8.5-10.1); CARBON DIOXIDE 29.2 mmol/L (21.0-32.0); CHLORIDE - SERUM 103 mmol/L (98-107); CREATININE - SERUM 1.3 mg/dL (0.6-1.3); GLUCOSE 116 mg/dL (74-106); POTASSIUM - SERUM 4.3 mmol/L (3.5-5.1); PROTEIN - SERUM 7.4 g/dL (6.4-8.2); SODIUM 140 mmol/L (136-145); UREA NITROGEN 20 mg/dL (7-18); eGFR NON AFRICAN AMERICAN 55 mL/min (90-120)
[2017-12-05 15:28] LABS: CHOL - HDL RATIO 2.9 ratio (2.3-4.9); CHOLESTEROL, TOTAL 158 mg/dL (0-200); CKMB 1.2 U/L (0.0-3.6); CREATINE KINASE 59 UL (21-232); HDL CHOLESTEROL 54 mg/dL (32-96); LDL CHOLESTEROL 85 mg/dL (0-100); LDL-HDL RATIO 1.6 ratio (1.5-3.5); TRIGLYCERIDE 95 mg/dL (30-200)
[2017-12-05 15:32] LABS: TROPONIN-I < 0.017 ng/mL (0.000-0.060)
[2017-12-05 15:38] LABS: MAGNESIUM - SERUM 2.4 mg/dL (1.8-2.4)
[2017-12-05 19:14] VITALS: BP 128/63; BMI 23.6
[2017-12-05 20:00] VITALS: BP 132/70
[2017-12-06] VITALS: BP 114/53
[2017-12-06 04:00] VITALS: BP 111/54
[2017-12-06 09:10] VITALS: BP 135/65
[2017-12-06 12:23] VITALS: Ht 182.9 cm; Wt 81.0 kg
[2017-12-06 12:55] VITALS: BP 128/62
[2017-12-06 18:30] VITALS: BP 130/69
[2017-12-06 20:54] VITALS: BP 130/60
[2017-12-07 06:52] VITALS: BP 123/64
[2017-12-07 10:06] VITALS: BP 138/50
[2017-12-07 12:31] VITALS: BP 101/65
== END 2017-12-07 13:30 | disposition home or self-care (01) ==
LOC: D.ER 14:01 → D.M2 16:20 → OBSVTIME 16:20 → D.M2 16:20 → D.SDCHOLD 12-06 16:59 → D.M2 12-06 17:01
PROVIDERS: Emergency Medicine
DX: I25.110 Atherosclerotic heart disease of native coronary artery with unstable angina pectoris (principal); Z95.5 Presence of coronary angioplasty implant and graft; Z86.73 Personal history of transient ischemic attack (TIA), and cerebral infarction without residual deficits; I25.2 Old myocardial infarction; Z87.891 Personal history of nicotine dependence

== ENCOUNTER 2018-10-03 19:00 | Inpatient (IN) | payer MEDICARE, BC ==
[~2018-10-03] VITALS: Ht 182.9 cm; Wt 77.1 kg
--- NOTE | ~2018-10-03 | MORECARE ---
CASE MANAGEMENT DISCHARGE SUMMARY PATIENT: SOBIA MORRIS UNIT: [id number] ADM DATE: 10/03/18 AGE: 88 : 29 SEX: M ROOM/BED: D.2211 AUTHOR: RAMY LIAO PHYSICIAN: REFERRING PHYSICIAN: RUIZ STOVALL MD DATE OF SERVICE: 10/08/18 Discharge Plan Patient Name: SOBIA MORRIS Facility: [facility]:[place] : 1930 Planned Disposition: Inpatient Rehab Anticipated Discharge Date: Discharge Date: Expected LOS: Initial Reviewer: [email or web address] Initial Review Date: 10/06/2018 Generated: 10/08/18 1:07 pm Comments DCP- Discharge Planning Updated by [email or web address]: Iris Louis on 10/08/18 11:[address] patient dc is cancelled b/c of his h&h dropping too much per Bonny Olivo with rehab notified DCP- Discharge Planning Updated by [email or web address]: Iris Louis on 10/08/18 11:[address] PATIENT WILL BE GOING TO INPATIENT REHAB TODAY DCP- Discharge Planning Updated by [email or web address]: Iris Louis on 10/06/18 10:[address] Patient Name: SOBIA MORRIS Admission Status: ER Accout number: [id number] Admission Date: 10-03-2018 : 1930 Admission Diagnosis:DISPLACED INTERTROCHANTERIC FRACTURE OF RIGHT FEMUR, IN Attending: RUIZ STOVALL Current LOS: 3 Anticipated DC Date: Planned Disposition: Primary Insurance: MEDICARE A & B Discharge Planning Comments: CM met with patient and daughter to assess discharge planning needs. Prior to coming to the hospital, patient lived independently at home by himself. He used a cane for balance and has shower rails. There are 15 steps in his home and his bedroom is on the second floor. His daughter Darci will be the one to take him home when he is discharge. He plans on going to inpatient rehab at [facility] if accepted. IMM served and explained. CM will continue to follow and assist with DC planning Molding Supervisor: Iris Louis DCP- Discharge Planning Updated by [email or web address]: Nayana Mnajarrez on 10/04/18 2:[address] CM RECIEVED CASE MANAGEMENT CONSULT ORDER FOR DISCHARGE PLANNING. PATIENT TO OR TODAY. WILL F/U. Coverage Notice Reviewer: [id number] Yesenia Louis Notice Issued Date-Time: 10/06/2018 10:45 Notice Type: IM Discharge Notice Notice Delivered To: Family Member Relationship to Patient: Daughter [place] [employer] Group Leader Name: DARCI Delivery Method: HAND - Hand Delivered Radha Days: Prior Verbal Notification: Recipient Understood Notice: Yes Recipient Signature: Yes Med Rec Note Co-signed by Attending: Coverage Notice Comment: Patient Name: SOBIA MORRIS Page 10017 at 1207 All edits/amendments must be made on the electronic document DICTATION DATE: 10/08/181205 CERTIFIED PERSONAL FINANCE COUNSELOR: REGINE 10/08/181205 RPT#: [id number] DC DATE: STATUS: ADM IN [facility] [address] [place] [address] END OF REPORT
--- NOTE | ~2018-10-03 | MORECARE ---
CASE MANAGEMENT DISCHARGE SUMMARY PATIENT: SOBIA MORRIS UNIT: [id number] ADM DATE: 10/03/18 AGE: 88 : 29 SEX: M ROOM/BED: D.2211 AUTHOR: RAMY LIAO PHYSICIAN: REFERRING PHYSICIAN: RUIZ STOVALL MD DATE OF SERVICE: 10/09/18 Discharge Plan Patient Name: SOBIA MORRIS Facility: [facility]:[place] : 1930 Planned Disposition: Inpatient Rehab Anticipated Discharge Date: Discharge Date: Expected LOS: Initial Reviewer: [email or web address] Initial Review Date: 10/06/2018 Generated: 10/09/18 4:05 pm Comments DCP- Discharge Planning Updated by [email or web address]: Iris Louis on 10/09/18 1:[address] Patient will be discharging to inpatient rehab today, I attempted to call his daughter Darci but there was not an answer. CM will continue to follow and assist with DC planning . IMM given DCP- Discharge Planning Updated by [email or web address]: Iris Louis on 10/08/18 11:[address] patient dc is cancelled b/c of his h&h dropping too much per Bonny Olivo with rehab notified DCP- Discharge Planning Updated by [email or web address]: Iris Louis on 10/08/18 11:[address] PATIENT WILL BE GOING TO INPATIENT REHAB TODAY DCP- Discharge Planning Updated by [email or web address]: Iris Louis on 10/06/18 10:[address] Patient Name: SOBIA MORRIS Admission Status: ER Accout number: [id number] Admission Date: 10-03-2018 : 1930 Admission Diagnosis:DISPLACED INTERTROCHANTERIC FRACTURE OF RIGHT FEMUR, IN Attending: RUIZ STOVALL Current LOS: 3 Anticipated DC Date: Planned Disposition: Primary Insurance: MEDICARE A & B Discharge Planning Comments: CM met with patient and daughter to assess discharge planning needs. Prior to coming to the hospital, patient lived independently at home by himself. He used a cane for balance and has shower rails. There are 15 steps in his home and his bedroom is on the second floor. His daughter Darci will be the one to take him home when he is discharge. He plans on going to inpatient rehab at [facility] if accepted. IMM served and explained. CM will continue to follow and assist with DC planning Grinder Set Up Operator Jig: Iris Louis DCP- Discharge Planning Updated by [email or web address]: Nayana Conners on 10/04/18 2:[address] CM RECIEVED CASE MANAGEMENT CONSULT ORDER FOR DISCHARGE PLANNING. PATIENT TO OR TODAY. WILL F/U. Coverage Notice Reviewer: [id number] Yesenia Louis Notice Issued Date-Time: 10/06/2018 10:45 Notice Type: IM Discharge Notice Notice Delivered To: Family Member Relationship to Patient: Daughter Dairy Tester Name: DARCI Delivery Method: HAND - Hand Delivered Radha Days: Prior Verbal Notification: Recipient Understood Notice: Yes Recipient Signature: Yes Med Rec Note Co-signed by Attending: Coverage Notice Comment: Reviewer: [email or web address] Yesenia Louis Notice Issued Date-Time: 10/09/2018 14:45 Notice Type: IM Discharge Notice Notice Delivered To: Patient Relationship to Patient: Dairy Tester Name: Delivery Method: HAND - Hand Delivered Radha Days: Prior Verbal Notification: Recipient Understood Notice: Yes Recipient Signature: Yes Med Rec Note Co-signed by Attending: Coverage Notice Comment: Last DP export: 10/08/18 11:07 Patient Name: SOBIA MORRIS Page [id number] at 1505 All edits/amendments must be made on the electronic document DICTATION DATE: 10/09/18 1505 CYBER INSTRUCTOR: REGINE 10/09/18 1505 RPT#: [id number] DC DATE: STATUS: ADM IN [facility] [address] [place] [address] END OF REPORT
--- NOTE | ~2018-10-03 | MORECARE ---
CASE MANAGEMENT DISCHARGE SUMMARY PATIENT: SOIBA MORRIS UNIT: [id number] ADM DATE: 10/03/18 AGE: 88 : 29 SEX: M ROOM/BED: D.2211 AUTHOR: RAMY LIAO PHYSICIAN: REFERRING PHYSICIAN: RUIZ STOVALL MD DATE OF SERVICE: 10/10/18 Discharge Plan Patient Name: SOBIA MORRIS Facility: [facility]:[place] : 1930 Planned Disposition: Inpatient Rehab Anticipated Discharge Date: Discharge Date: 10/09/2018 Expected LOS: 0 Initial Reviewer: [email or web address] Initial Review Date: 10/06/2018 Generated: 10/10/18 11:22 am Comments DCP- Discharge Planning Updated by [email or web address]: Iris Louis on 10/09/18 1:[address] Patient will be discharging to inpatient rehab today, I attempted to call his daughter Darci but there was not an answer. CM will continue to follow and assist with DC planning . IMM given DCP- Discharge Planning Updated by [email or web address]: Iris Louis on 10/08/18 11:[address] patient dc is cancelled b/c of his h&h dropping too much per Bonny Olivo with rehab notified DCP- Discharge Planning Updated by [email or web address]: Iris Louis on 10/08/18 11:[address] PATIENT WILL BE GOING TO INPATIENT REHAB TODAY DCP- Discharge Planning Updated by [id number]: Iris Louis on 10/06/18 10:[address] Patient Name: SOBIA MORRIS Admission Status: ER Accout number: [id number] Admission Date: 10-03-2018 : 1930 Admission Diagnosis:DISPLACED INTERTROCHANTERIC FRACTURE OF RIGHT FEMUR, IN Attending: RUIZ STOVALL Current LOS: 3 Anticipated DC Date: Planned Disposition: Primary Insurance: MEDICARE A & B Discharge Planning Comments: CM met with patient and daughter to assess discharge planning needs. Prior to coming to the hospital, patient lived independently at home by himself. He used a cane for balance and has shower rails. There are 15 steps in his home and his bedroom is on the second floor. His daughter Darci will be the one to take him home when he is discharge. He plans on going to inpatient rehab at [facility] if accepted. IMM served and explained. CM will continue to follow and assist with DC planning Ladler: Iris Louis DCP- Discharge Planning Updated by [email or web address]: Nayana Manjarrez on 10/04/18 2:[address] CM RECIEVED CASE MANAGEMENT CONSULT ORDER FOR DISCHARGE PLANNING. PATIENT TO OR TODAY. WILL F/U. Coverage Notice Reviewer: [id number] Yesenia Louis Notice Issued Date-Time: 10/06/2018 10:45 Notice Type: IM Discharge Notice Notice Delivered To: Family Member Relationship to Patient: Daughter Briar Wood Sorter Name: DARCI Delivery Method: HAND - Hand Delivered Radha Days: Prior Verbal Notification: Recipient Understood Notice: Yes Recipient Signature: Yes Med Rec Note Co-signed by Attending: Coverage Notice Comment: Reviewer: [id number] Yesenia Louis Notice Issued Date-Time: 10/09/2018 14:45 Notice Type: IM Discharge Notice Notice Delivered To: Patient Relationship to Patient: Briar Wood Sorter Name: Delivery Method: HAND - Hand Delivered Radha Days: Prior Verbal Notification: Recipient Understood Notice: Yes Recipient Signature: Yes Med Rec Note Co-signed by Attending: Coverage Notice Comment: Last DP export: 10/09/18 2:05 Patient Name: SOBIA MORRIS Page 21016 at 1022 All edits/amendments must be made on the electronic document DICTATION DATE: 10/10/18 1021 THROUGH FREIGHT ENGINEER: REGINE 10/10/18 1021 RPT#: [id number] DC DATE:10/09/18 STATUS: DIS IN [facility] [address] [place] [address] END OF REPORT
[2018-10-03 20:00] VITALS: BP 144/72
[2018-10-03 21:49] LABS: INR 1.21 (0.85-1.17); PROTIME 14.8 SECONDS (11.6-15.0)
[2018-10-03 21:50] LABS: APTT 34.8 SECONDS (22.8-39.4)
[2018-10-03 22:30] VITALS: BP 147/68
[2018-10-03 22:48] LABS: BASOPHILS 0.1 % (0-2); EOSINOPHILS 0.2 % (0-7); HEMATOCRIT 37.3 % (42.0-54.0); HEMOGLOBIN 12.8 g/dL (13.5-17.5); IMMATURE GRANULOCYTES 0.2 % (0-5); LYMPHOCYTES 6.1 % (15-50); MCH 31.4 pg (26.0-34.0); MCHC 34.3 g/dL (31.0-37.0); MCV 91.6 fL (80.0-100.0); MEAN PLATELET VOLUME 10.7 fL (7.4-10.4); MONOCYTES 6.9 % (2-11); NEUTROPHILS 86.5 % (40-80); PLATELET COUNT 133 10x3/uL (130-400); RBC 4.07 10x6/uL (4.20-6.10); RDW 12.4 % (11.5-14.5); WBC 10.6 10x3/uL (4.8-10.8)
[2018-10-03 22:55] LABS: ALBUMIN 3.3 g/dL (3.4-5.0); ANION GAP 13.4 mmol/L (8-16); BILIRUBIN - TOTAL 1.14 mg/dL (0.2-1.3); CALCIUM 8.8 mg/dL (8.5-10.1); CARBON DIOXIDE 25.5 mmol/L (21.0-32.0); CREATININE - SERUM 1.1 mg/dL (0.6-1.3); POTASSIUM - SERUM 3.9 mmol/L (3.5-5.1)
[2018-10-03] MEDS ORDERED: FISH OIL 1,0001 CA1 PO (23:32)
[2018-10-03] MEDS ORDERED: PLAVIX75 MG PO (23:34)
[2018-10-03 23:36] VITALS: BP 141/70; BMI 23.1
[2018-10-04] VITALS: BP 141/70
[2018-10-04 04:00] VITALS: BP 136/61
[2018-10-04 08:45] VITALS: BP 146/60
[2018-10-04 10:35] VITALS: BMI 23.0
[2018-10-04 12:24] LABS: BASOPHILS 0.1 % (0-2); EOSINOPHILS 0.1 % (0-7); HEMOGLOBIN 12.1 g/dL (13.5-17.5); IMMATURE GRANULOCYTES 0.2 % (0-5); LYMPHOCYTES 13.6 % (15-50); MCH 31.3 pg (26.0-34.0); MCHC 33.6 g/dL (31.0-37.0); MEAN PLATELET VOLUME 10.6 fL (7.4-10.4); MONOCYTES 11.6 % (2-11); NEUTROPHILS 74.4 % (40-80); PLATELET COUNT 126 10x3/uL (130-400); RBC 3.87 10x6/uL (4.20-6.10); RDW 12.7 % (11.5-14.5); WBC 9.5 10x3/uL (4.8-10.8)
[2018-10-04 12:30] LABS: ANION GAP 11.2 mmol/L (8-16); CALCIUM 8.5 mg/dL (8.5-10.1); CARBON DIOXIDE 29.3 mmol/L (21.0-32.0); CREATININE - SERUM 1.2 mg/dL (0.6-1.3); POTASSIUM - SERUM 4.5 mmol/L (3.5-5.1)
[2018-10-04 13:05] VITALS: BP 122/59
[2018-10-04 15:33] VITALS: BP 134/90
[2018-10-04 18:32] LABS: APPEARANCE CLEAR (CLEAR); BILIRUBIN NEGATIVE (NEGATIVE); COLOR AMBER (YELLOW); GLUCOSE NEGATIVE (NEGATIVE); KETONE MODERATE mg/dL (NEGATIVE); NITRITE NEGATIVE (NEGATIVE); PROTEIN TRACE mg/dL (NEGATIVE); UROBILINOGEN NORMAL (NORMAL)
[2018-10-04 18:34] LABS: WHITE CELLS - URINE 0-5 /hpf (0-5)
[2018-10-04 18:35] LABS: BACTERIA MODERATE /hpf (NONE SEEN); GRANULAR CAST 0-5 /lpf (NONE SEEN); HYALINE CAST 0-5 /lpf (NONE SEEN); MUCUS <1+ /lpf (NONE SEEN)
[2018-10-04 19:38] VITALS: BP 129/67
[2018-10-05] VITALS: BP 113/44; BP 117/57
[2018-10-05 04:00] VITALS: BP 121/60
[2018-10-05 06:16] LABS: BASOPHILS 0.2 % (0-2); EOSINOPHILS 0 % (0-7); IMMATURE GRANULOCYTES 0.2 % (0-5); LYMPHOCYTES 15.7 % (15-50); MCH 30.8 pg (26.0-34.0); MCHC 33.3 g/dL (31.0-37.0); MCV 92.3 fL (80.0-100.0); MEAN PLATELET VOLUME 10.5 fL (7.4-10.4); MONOCYTES 15.4 % (2-11); NEUTROPHILS 68.5 % (40-80); PLATELET COUNT 103 10x3/uL (130-400); RDW 12.9 % (11.5-14.5); WBC 9.7 10x3/uL (4.8-10.8)
[2018-10-05 06:26] LABS: HEMATOCRIT 26.4 % (42.0-54.0); HEMOGLOBIN 8.8 g/dL (13.5-17.5); RBC 2.86 10x6/uL (4.20-6.10)
[2018-10-05 06:27] LABS: ANION GAP 11.2 mmol/L (8-16); CALCIUM 7.1 mg/dL (8.5-10.1); CARBON DIOXIDE 25.2 mmol/L (21.0-32.0); CREATININE - SERUM 1.3 mg/dL (0.6-1.3); POTASSIUM - SERUM 4.4 mmol/L (3.5-5.1)
[2018-10-05 08:26] VITALS: BP 143/51
[2018-10-05 11:57] VITALS: BP 122/43
[2018-10-05 15:13] VITALS: BP 118/64
[2018-10-05 20:21] VITALS: BP 123/47
[2018-10-06] VITALS (12 sets, daily range): BP systolic 96–157; BP diastolic 41–75
[2018-10-06 03:55] LABS: BASOPHILS 0.3 % (0-2); EOSINOPHILS 1.2 % (0-7); IMMATURE GRANULOCYTES 0.1 % (0-5); LYMPHOCYTES 21.1 % (15-50); MCH 31.1 pg (26.0-34.0); MCHC 33.8 g/dL (31.0-37.0); MONOCYTES 14.6 % (2-11); NEUTROPHILS 62.7 % (40-80); RDW 12.9 % (11.5-14.5)
[2018-10-06 03:56] LABS: HEMOGLOBIN 6.6 g/dL (13.5-17.5); RBC 2.12 10x6/uL (4.20-6.10); WBC 6.7 10x3/uL (4.8-10.8)
[2018-10-06 03:57] LABS: HEMATOCRIT 19.5 % (42.0-54.0); PLATELET COUNT 78 10x3/uL (130-400)
[2018-10-06 04:06] LABS: ANION GAP 9.3 mmol/L (8-16); CARBON DIOXIDE 26.5 mmol/L (21.0-32.0); CREATININE - SERUM 1.2 mg/dL (0.6-1.3); POTASSIUM - SERUM 3.8 mmol/L (3.5-5.1)
[2018-10-06 04:09] LABS: CALCIUM 6.8 mg/dL (8.5-10.1)
[2018-10-06 14:33] LABS: HEMOGLOBIN 12.2 g/dL (13.5-17.5)
[2018-10-06 14:34] LABS: HEMATOCRIT 42.8 % (42.0-54.0)
[2018-10-07] VITALS: BP 125/51
[2018-10-07 05:24] LABS: BASOPHILS 0.2 % (0-2); EOSINOPHILS 1.5 % (0-7); IMMATURE GRANULOCYTES 0.3 % (0-5); LYMPHOCYTES 14.2 % (15-50); MCH 29.9 pg (26.0-34.0); MCHC 33.6 g/dL (31.0-37.0); MEAN PLATELET VOLUME 10.8 fL (7.4-10.4); MONOCYTES 13.4 % (2-11); NEUTROPHILS 70.4 % (40-80); PLATELET COUNT 78 10x3/uL (130-400); RDW 14.3 % (11.5-14.5); WBC 6.6 10x3/uL (4.8-10.8)
[2018-10-07 05:40] LABS: HEMATOCRIT 25.6 % (42.0-54.0); HEMOGLOBIN 8.6 g/dL (13.5-17.5); MCV 88.9 fL (80.0-100.0); RBC 2.88 10x6/uL (4.20-6.10)
[2018-10-07 05:56] LABS: ANION GAP 13.3 mmol/L (8-16); CARBON DIOXIDE 24.3 mmol/L (21.0-32.0); CREATININE - SERUM 1.2 mg/dL (0.6-1.3); POTASSIUM - SERUM 3.6 mmol/L (3.5-5.1)
[2018-10-07 05:59] LABS: CALCIUM 6.9 mg/dL (8.5-10.1)
[2018-10-07 06:41] VITALS: BP 123/56
[2018-10-07 08:07] VITALS: BP 115/54
[2018-10-07 12:45] VITALS: BP 118/50
[2018-10-07 15:52] VITALS: Ht 182.9 cm; Wt 77.1 kg
[2018-10-07 16:40] VITALS: BP 102/39
[2018-10-07 20:00] VITALS: BP 123/48
[2018-10-08 00:32] VITALS: BP 139/59
[2018-10-08 04:25] LABS: BASOPHILS 0.2 % (0-2); EOSINOPHILS 1.7 % (0-7); HEMATOCRIT 24.4 % (42.0-54.0); HEMOGLOBIN 8.3 g/dL (13.5-17.5); IMMATURE GRANULOCYTES 0.4 % (0-5); LYMPHOCYTES 16.5 % (15-50); MCH 30.1 pg (26.0-34.0); MCV 88.4 fL (80.0-100.0); MONOCYTES 13.8 % (2-11); NEUTROPHILS 67.4 % (40-80); RBC 2.76 10x6/uL (4.20-6.10); RDW 14.1 % (11.5-14.5); WBC 5.3 10x3/uL (4.8-10.8)
[2018-10-08 04:30] LABS: PLATELET COUNT 95 10x3/uL (130-400)
[2018-10-08 04:36] LABS: CALC OSMOLALITY 283 mosm/kg (275-300); CARBON DIOXIDE 23.3 mmol/L (21.0-32.0); CHLORIDE - SERUM 110 mmol/L (98-107); CREATININE - SERUM 0.9 mg/dL (0.6-1.3); GLUCOSE 111 mg/dL (74-106); POTASSIUM - SERUM 3.3 mmol/L (3.5-5.1); SODIUM 142 mmol/L (136-145); UREA NITROGEN 13 mg/dL (7-18); eGFR NON AFRICAN AMERICAN 84 mL/min (90-120)
[2018-10-08 04:38] LABS: CALCIUM 6.9 mg/dL (8.5-10.1)
[2018-10-08 05:45] VITALS: BP 137/57
[2018-10-08 08:56] VITALS: BP 128/60
[2018-10-08] MEDS ORDERED: LOVENOX80 MG/0.8 SC (10:50)
[2018-10-08] MEDS ORDERED: TESSALON PERLE100 MG PO (10:50)
[2018-10-08] MEDS ORDERED: MUCINEX600 MG PO (10:50)
[2018-10-08] MEDS ORDERED: NORCO-7.5 PO (10:50)
[2018-10-08] MEDS ORDERED: PROTONIX VL + NS SYR IV (10:51)
[2018-10-08] MEDS ORDERED: COLACE100 MG PO (10:51)
[2018-10-08] MEDS ORDERED: VANCOMYCIN 1 GM/1 G1 IV (10:51)
[2018-10-08 13:34] VITALS: BP 159/76
[2018-10-08 16:25] VITALS: BP 115/49
[2018-10-08 20:00] VITALS: BP 118/49
[2018-10-09] VITALS: BP 139/51
[2018-10-09 05:04] VITALS: BP 133/58
[2018-10-09 05:32] LABS: BASOPHILS 0.2 % (0-2); EOSINOPHILS 3.3 % (0-7); HEMATOCRIT 25.9 % (42.0-54.0); HEMOGLOBIN 8.6 g/dL (13.5-17.5); IMMATURE GRANULOCYTES 0.3 % (0-5); LYMPHOCYTES 15.2 % (15-50); MCH 29.5 pg (26.0-34.0); MCHC 33.2 g/dL (31.0-37.0); MCV 88.7 fL (80.0-100.0); MONOCYTES 15.2 % (2-11); NEUTROPHILS 65.8 % (40-80); RBC 2.92 10x6/uL (4.20-6.10); RDW 14.1 % (11.5-14.5); WBC 5.8 10x3/uL (4.8-10.8)
[2018-10-09 05:50] LABS: CALC OSMOLALITY 285 mosm/kg (275-300); CARBON DIOXIDE 27.6 mmol/L (21.0-32.0); CHLORIDE - SERUM 106 mmol/L (98-107); GLUCOSE 111 mg/dL (74-106); POTASSIUM - SERUM 3.3 mmol/L (3.5-5.1); SODIUM 143 mmol/L (136-145); UREA NITROGEN 12 mg/dL (7-18); eGFR NON AFRICAN AMERICAN 75 mL/min (90-120)
[2018-10-09 05:54] LABS: PLATELET COUNT 120 10x3/uL (130-400)
[2018-10-09 06:32] LABS: CALCIUM 6.9 mg/dL (8.5-10.1)
[2018-10-09 09:12] VITALS: BP 130/50
[2018-10-09 15:17] VITALS: BP 108/40
== END 2018-10-09 18:50 | DRG 481 ==
LOC: D.ER 19:00 → D.MS 22:37
PROVIDERS: Emergency Medicine; Internal Medicine Nephrology; Orthopaedic Surgery
PROC: 0QH636Z Insertion of Intramedullary Internal Fixation Device into Right Upper Femur, Percutaneous Approach (ICD-10-PCS; principal; 2018-10-04 10:00)
DX: S72.141A Displaced intertrochanteric fracture of right femur, initial encounter for closed fracture (principal); D62 Acute posthemorrhagic anemia; W19.XXXA Unspecified fall, initial encounter; I25.10 Atherosclerotic heart disease of native coronary artery without angina pectoris

== ENCOUNTER 2018-10-09 19:00 | Inpatient (IN) | payer MEDICARE, BC ==
[~2018-10-09] VITALS: Ht 182.9 cm; Wt 82.1 kg
--- NOTE | ~2018-10-09 | RHP ---
PATIENT: SOBIA MORRIS MEDICAL RECORD: [id number] ACCOUNT: [id number] LOCATION:[facility] : [birth year] ADMISSION DATE: 10/09/18 REHABILITATION HISTORY AND PHYSICAL EXAMINATION POST ADMISSION PHYSICIAN EXAMINATION DATE OF ADMISSION: 10/09/2018 ADMITTING DIAGNOSIS: Fracture of the right femur. HISTORY OF PRESENT ILLNESS: The patient is an 88-year-old gentleman who presents secondary intertrochanteric fracture of the proximal femur after a fall. He apparently got his feet underneath him in a way that caused him to trip. He states that he had pain in his groin, was made worse with any type to attempt at range of motion, was able to stand, 911 was called. He presented to the ER via EMS. X-ray showed an intertrochanteric fracture of the right femur. The lesser trochanter on the right side was also approximately displaced. He was admitted for ortho consult. On 10/04/2018, he went to the OR for a right trochanteric femoral nail using fluoroscopic guidance and an open reduction. Postop, he has been complicated by blood loss anemia. His H&H has been 6.6 and 19.5. He received 2 units of packed red blood cells, it is still low to day. On 10/06/2018, he developed pain and tightness in the right thigh. He had a DVT in his right popliteal vein. Previously, he was living alone and was independent with ADLs and mobility using a single point cane. Currently, he is mod-to-max assist for ADLs and mobility. He has been having increasing pain in his right leg secondary to DVT in his operative leg. He remains anemic, but his H&H are trending upward. He is progressing slowly with PT and has ambulated 3 feet, mainly limited by pain. He will have to work with PT and OT throughout his stay in order to get back to his prior level of functioning. COMORBIDITIES: Include acute blood loss anemia, coronary artery disease, DVT, hypertension, hyperlipidemia, aortic valve disorder, TN and arthritis. PAST MEDICAL HISTORY: Significant for cataracts, dentures, TN, coronary artery disease, arthritis, dry skin. PAST SURGICAL HISTORY: Includes stent placement, appendectomy and a right femoral nail. ALLERGIES: No known drug allergies. CURRENT MEDICATIONS: He is on vancomycin. He is on Protonix 40 mg daily, Pravachol 20 mg daily, he is on metoprolol 25 mg daily, omega 3 two caps daily, he is on Colace 100 mg daily, aspirin 81 mg daily, he is on electrolyte protocol at this time, he is on [place] 7.5 one tab every 4 hours p.r.n. pain, Mucinex 1200 mg b.i.d., enoxaparin 80 mg subQ every 12 hours, and Tessalon Perles 100 mg t.i.d. HABITS: No alcohol or tobacco use. FAMILY HISTORY: Noncontributory. SOCIAL HISTORY: The patient hopes to return back home and get back to his prior level of functioning. HISTORY AND PHYSICAL [id number] SOBIA MORRIS REVIEW OF SYSTEMS: GENERAL: He does complain of some weakness and fatigue. HEENT: Denies cold, cough, or congestion. CARDIOVASCULAR: He denies chest pain. PHYSICAL EXAMINATION: VITAL SIGNS: Stable, afebrile. GENERAL: Elderly gentleman in no acute distress upon exam. HEENT: Normocephalic and atraumatic. Mucosa moist. NECK: Supple with no lymphadenopathy. LUNGS: Clear at this time. HEART: Has a regular rate and rhythm. ABDOMEN: Benign. EXTREMITIES: No clubbing, cyanosis or edema. Does have noted postoperative changes that appear normal. NEUROLOGIC: He does have noted proximal muscle weakness. LABORATORY DATA: White count is 7.5, H&H of 7.5 and 22.5 and platelet count was noted to be 146. His sodium is 138, potassium 4.0, BUN and creatinine of 14 and 1.0 and blood sugar is noted to be 107. His admit UA did show 10 to 25 red blood cells, but no white blood cells and no signs of infection. ASSESSMENT: This is 88-year-old gentleman is status post a right trochanteric and proximal femur fracture, status post intramedullary nailing. The patient has potential to make improvement. We instituted the following multidisciplinary therapies include, but not limited to physical, occupational, respiratory, speech, nutritional services, prosthetics and orthotics. Given his complex medical condition and risk for more complications, rehabilitation services cannot be provided at a low level of care such as longterm facility. PLAN: 1. Admit to [facility] for intensive inpatient therapy to include the following disciplines: A. Physical therapy to improve gait, all transfer skills and bed mobility to a modified independent level. B. Occupational therapy to a modified independent level. C. Case management to assist with discharge planning and placement options. D. Nutrition to assist with nutritional needs. E. Rehabilitation nursing to assist in monitoring the patient's underlying medical condition and to assist with any type of bowel or bladder management. 2. The patient's current medication and medical care will be continued. 3. Placed on standard fall precautions. 4. I am going to go ahead and give him 2 units of packed red blood cells. 5. I am going to go ahead and and follow him up in the a.m. TRANSINT:[id number] Voice Confirmation ID: [id number] DOCUMENT ID: [id number] [facility] notes whether there has been none or any medical/functional change since admission: - No change since preadmission screen. [facility] attests patient continues to be appropriate for IRF: HISTORY AND PHYSICAL [id number] SOBIA MORRIS - Continues to be appropriate. FLOWER HORNE MD at 1503 CC: [id number] DICTATION DATE: 10/10/18901 SPRAY MACHINE TENDER: 10/10/18 1045 ADM IN [facility] [address] [place] [id number]
[~2018-10-09 19:00] MED LIST changes: +COLACE100 MG PO; +FISH OIL 1,0001 CA1 PO; +LOVENOX80 MG/0.8 SC; +MUCINEX600 MG PO; +NORCO-7.5 PO; +PROTONIX VL + NS SYR IV; +TESSALON PERLE100 MG PO; +VANCOMYCIN 1 GM/1 G1 IV
[2018-10-09 22:42] VITALS: BP 123/59; BMI 24.6
[2018-10-10 00:30] LABS: APPEARANCE HAZY (CLEAR); BILIRUBIN 1+ (NEGATIVE); COLOR YELLOW (YELLOW); GLUCOSE NEGATIVE (NEGATIVE); KETONE NEGATIVE (NEGATIVE); NITRITE NEGATIVE (NEGATIVE); PROTEIN TRACE mg/dL (NEGATIVE)
[2018-10-10 00:31] LABS: BACTERIA NONE SEEN /hpf (NONE SEEN); EPITHELIAL CELLS 0-5 /hpf (0-5); WHITE CELLS - URINE 0-5 /hpf (0-5)
[2018-10-10 07:18] LABS: BASOPHILS 0.3 % (0-2); EOSINOPHILS 3.5 % (0-7); HEMATOCRIT 22.5 % (42.0-54.0); IMMATURE GRANULOCYTES 0.7 % (0-5); LYMPHOCYTES 13.4 % (15-50); MCH 29.8 pg (26.0-34.0); MCHC 33.3 g/dL (31.0-37.0); MCV 89.3 fL (80.0-100.0); MEAN PLATELET VOLUME 10.9 fL (7.4-10.4); MONOCYTES 15.3 % (2-11); NEUTROPHILS 66.8 % (40-80); RBC 2.52 10x6/uL (4.20-6.10)
[2018-10-10 07:20] LABS: PLATELET COUNT 146 10x3/uL (130-400); WBC 7.5 10x3/uL (4.8-10.8)
[2018-10-10 07:21] LABS: HEMOGLOBIN 7.5 g/dL (13.5-17.5)
[2018-10-10 07:52] LABS: CALC OSMOLALITY 276 mosm/kg (275-300); CALCIUM 7.5 mg/dL (8.5-10.1); CARBON DIOXIDE 26.1 mmol/L (21.0-32.0); CHLORIDE - SERUM 103 mmol/L (98-107); GLUCOSE 107 mg/dL (74-106); SODIUM 138 mmol/L (136-145); UREA NITROGEN 14 mg/dL (7-18); eGFR NON AFRICAN AMERICAN 75 mL/min (90-120)
[2018-10-10 08:00] VITALS: BP 126/49
[2018-10-10 09:16] VITALS: Ht 182.9 cm; Wt 82.1 kg
[2018-10-10 19:00] VITALS: BP 116/49
[2018-10-11 08:00] VITALS: BP 99/51
[2018-10-11 19:00] VITALS: BP 100/52
[2018-10-12 12:16] VITALS: BP 111/68
[2018-10-12 19:00] VITALS: BP 119/55
[2018-10-13 07:10] LABS: BASOPHILS 0.5 % (0-2); EOSINOPHILS 4.8 % (0-7); HEMOGLOBIN 9.4 g/dL (13.5-17.5); IMMATURE GRANULOCYTES 1.3 % (0-5); LYMPHOCYTES 16.1 % (15-50); MCH 30.1 pg (26.0-34.0); MCHC 32.4 g/dL (31.0-37.0); MCV 92.9 fL (80.0-100.0); MEAN PLATELET VOLUME 10.9 fL (7.4-10.4); MONOCYTES 11.7 % (2-11); NEUTROPHILS 65.6 % (40-80); PLATELET COUNT 190 10x3/uL (130-400); RBC 3.12 10x6/uL (4.20-6.10); RDW 14.8 % (11.5-14.5); WBC 6.1 10x3/uL (4.8-10.8)
[2018-10-13 07:21] LABS: CALC OSMOLALITY 285 mosm/kg (275-300); CARBON DIOXIDE 25.3 mmol/L (21.0-32.0); CHLORIDE - SERUM 108 mmol/L (98-107); GLUCOSE 106 mg/dL (74-106); POTASSIUM - SERUM 3.5 mmol/L (3.5-5.1); SODIUM 143 mmol/L (136-145); UREA NITROGEN 16 mg/dL (7-18); eGFR NON AFRICAN AMERICAN 75 mL/min (90-120)
[2018-10-13 08:13] VITALS: BP 120/55
[2018-10-13 19:00] VITALS: BP 149/67
[2018-10-14 08:35] VITALS: BP 99/51
[2018-10-14 19:00] VITALS: BP 101/50
[2018-10-15 07:11] LABS: BASOPHILS 0.3 % (0-2); EOSINOPHILS 3.9 % (0-7); HEMATOCRIT 25.3 % (42.0-54.0); HEMOGLOBIN 8.2 g/dL (13.5-17.5); IMMATURE GRANULOCYTES 1.2 % (0-5); LYMPHOCYTES 13.9 % (15-50); MCH 30.5 pg (26.0-34.0); MCHC 32.4 g/dL (31.0-37.0); MCV 94.1 fL (80.0-100.0); MONOCYTES 12.1 % (2-11); NEUTROPHILS 68.6 % (40-80); PLATELET COUNT 204 10x3/uL (130-400); RBC 2.69 10x6/uL (4.20-6.10); RDW 15.5 % (11.5-14.5); WBC 6.7 10x3/uL (4.8-10.8)
[2018-10-15 07:37] LABS: CALC OSMOLALITY 277 mosm/kg (275-300); CALCIUM 7.6 mg/dL (8.5-10.1); CARBON DIOXIDE 23.3 mmol/L (21.0-32.0); CHLORIDE - SERUM 106 mmol/L (98-107); GLUCOSE 106 mg/dL (74-106); POTASSIUM - SERUM 3.4 mmol/L (3.5-5.1); SODIUM 139 mmol/L (136-145); UREA NITROGEN 12 mg/dL (7-18); eGFR NON AFRICAN AMERICAN 75 mL/min (90-120)
[2018-10-15 08:00] VITALS: BP 134/54
[2018-10-15 19:00] VITALS: BP 117/51
[2018-10-16 08:00] VITALS: BP 137/54
[2018-10-16 19:00] VITALS: BP 109/52
[2018-10-17 07:09] LABS: BASOPHILS 0.4 % (0-2); EOSINOPHILS 6.5 % (0-7); HEMATOCRIT 27.2 % (42.0-54.0); HEMOGLOBIN 8.9 g/dL (13.5-17.5); LYMPHOCYTES 16.3 % (15-50); MCH 30.4 pg (26.0-34.0); MCHC 32.7 g/dL (31.0-37.0); MCV 92.8 fL (80.0-100.0); MEAN PLATELET VOLUME 10.8 fL (7.4-10.4); MONOCYTES 12.4 % (2-11); NEUTROPHILS 63.4 % (40-80); PLATELET COUNT 207 10x3/uL (130-400); RBC 2.93 10x6/uL (4.20-6.10); RDW 15.7 % (11.5-14.5); WBC 5.2 10x3/uL (4.8-10.8)
[2018-10-17 07:21] LABS: CALC OSMOLALITY 283 mosm/kg (275-300); CALCIUM 7.5 mg/dL (8.5-10.1); CARBON DIOXIDE 25.3 mmol/L (21.0-32.0); CHLORIDE - SERUM 109 mmol/L (98-107); GLUCOSE 103 mg/dL (74-106); POTASSIUM - SERUM 3.2 mmol/L (3.5-5.1); SODIUM 143 mmol/L (136-145); UREA NITROGEN 11 mg/dL (7-18); eGFR NON AFRICAN AMERICAN 75 mL/min (90-120)
[2018-10-17 08:00] VITALS: BP 159/57; BP 175/104
[2018-10-17 19:00] VITALS: BP 106/37
[2018-10-18 06:17] LABS: POTASSIUM - SERUM 3.6 mmol/L (3.5-5.1)
[2018-10-18 19:05] VITALS: BP 133/51
[2018-10-19 10:08] VITALS: BP 152/70
[2018-10-19 23:36] VITALS: BP 136/66
[2018-10-20 06:54] LABS: BASOPHILS 0.9 % (0-2); EOSINOPHILS 5.6 % (0-7); HEMATOCRIT 29.7 % (42.0-54.0); HEMOGLOBIN 9.5 g/dL (13.5-17.5); IMMATURE GRANULOCYTES 0.4 % (0-5); LYMPHOCYTES 23.8 % (15-50); MCH 30.2 pg (26.0-34.0); MCV 94.3 fL (80.0-100.0); MEAN PLATELET VOLUME 10.7 fL (7.4-10.4); MONOCYTES 10.9 % (2-11); NEUTROPHILS 58.4 % (40-80); PLATELET COUNT 236 10x3/uL (130-400); RBC 3.15 10x6/uL (4.20-6.10); RDW 15.5 % (11.5-14.5); WBC 4.7 10x3/uL (4.8-10.8)
[2018-10-20 06:59] LABS: CALC OSMOLALITY 278 mosm/kg (275-300); CALCIUM 7.8 mg/dL (8.5-10.1); CARBON DIOXIDE 25.3 mmol/L (21.0-32.0); CHLORIDE - SERUM 107 mmol/L (98-107); CREATININE - SERUM 0.9 mg/dL (0.6-1.3); GLUCOSE 111 mg/dL (74-106); POTASSIUM - SERUM 3.3 mmol/L (3.5-5.1); SODIUM 140 mmol/L (136-145); UREA NITROGEN 9 mg/dL (7-18); eGFR NON AFRICAN AMERICAN 84 mL/min (90-120)
[2018-10-20 07:27] VITALS: BP 153/65
[2018-10-20 13:02] LABS: CALC OSMOLALITY 272 mosm/kg (275-300); CALCIUM 8.2 mg/dL (8.5-10.1); CARBON DIOXIDE 26.9 mmol/L (21.0-32.0); CHLORIDE - SERUM 104 mmol/L (98-107); GLUCOSE 103 mg/dL (74-106); POTASSIUM - SERUM 3.5 mmol/L (3.5-5.1); SODIUM 137 mmol/L (136-145); UREA NITROGEN 9 mg/dL (7-18); eGFR NON AFRICAN AMERICAN 75 mL/min (90-120)
[2018-10-20 19:02] VITALS: BP 146/54
[2018-10-21 07:55] VITALS: BP 146/65
[2018-10-21 19:50] VITALS: BP 147/58
[2018-10-22 06:11] LABS: BASOPHILS 0.6 % (0-2); EOSINOPHILS 2.8 % (0-7); HEMATOCRIT 31.2 % (42.0-54.0); HEMOGLOBIN 9.8 g/dL (13.5-17.5); IMMATURE GRANULOCYTES 0.4 % (0-5); MCH 30.1 pg (26.0-34.0); MCHC 31.4 g/dL (31.0-37.0); MCV 95.7 fL (80.0-100.0); MEAN PLATELET VOLUME 10.8 fL (7.4-10.4); MONOCYTES 14.3 % (2-11); NEUTROPHILS 51.9 % (40-80); PLATELET COUNT 240 10x3/uL (130-400); RBC 3.26 10x6/uL (4.20-6.10); RDW 15.6 % (11.5-14.5)
[2018-10-22 06:36] LABS: CALC OSMOLALITY 283 mosm/kg (275-300); CALCIUM 8.1 mg/dL (8.5-10.1); CARBON DIOXIDE 27.4 mmol/L (21.0-32.0); CHLORIDE - SERUM 108 mmol/L (98-107); GLUCOSE 99 mg/dL (74-106); POTASSIUM - SERUM 3.5 mmol/L (3.5-5.1); SODIUM 143 mmol/L (136-145); UREA NITROGEN 9 mg/dL (7-18); eGFR NON AFRICAN AMERICAN 75 mL/min (90-120)
[2018-10-22 08:00] VITALS: BP 142/82
[2018-10-22 20:30] VITALS: BP 140/57
[2018-10-23 08:00] VITALS: BP 140/61
[2018-10-23 19:00] VITALS: BP 147/66
[2018-10-24] MEDS ORDERED: NORCO-10 PO (07:54)
[2018-10-24 08:00] VITALS: BP 142/97
[2018-10-24 08:33] LABS: EOSINOPHILS 2.7 % (0-7); HEMATOCRIT 31.3 % (42.0-54.0); HEMOGLOBIN 9.9 g/dL (13.5-17.5); IMMATURE GRANULOCYTES 0.5 % (0-5); LYMPHOCYTES 31.9 % (15-50); MCH 30.1 pg (26.0-34.0); MCHC 31.6 g/dL (31.0-37.0); MCV 95.1 fL (80.0-100.0); MEAN PLATELET VOLUME 11.1 fL (7.4-10.4); MONOCYTES 17.1 % (2-11); NEUTROPHILS 46.8 % (40-80); PLATELET COUNT 225 10x3/uL (130-400); RBC 3.29 10x6/uL (4.20-6.10); RDW 15.6 % (11.5-14.5)
[2018-10-24 08:44] LABS: CALC OSMOLALITY 283 mosm/kg (275-300); CALCIUM 8.2 mg/dL (8.5-10.1); CARBON DIOXIDE 26.4 mmol/L (21.0-32.0); CHLORIDE - SERUM 108 mmol/L (98-107); CREATININE - SERUM 0.9 mg/dL (0.6-1.3); GLUCOSE 99 mg/dL (74-106); POTASSIUM - SERUM 3.6 mmol/L (3.5-5.1); SODIUM 143 mmol/L (136-145); UREA NITROGEN 11 mg/dL (7-18); eGFR NON AFRICAN AMERICAN 84 mL/min (90-120)
== END 2018-10-24 14:54 | DRG 560 ==
LOC: D.REHAB 19:00
PROVIDERS: Emergency Medicine
DX: S72.144D Nondisplaced intertrochanteric fracture of right femur, subsequent encounter for closed fracture with routine healing (principal); D62 Acute posthemorrhagic anemia; I82.409 Acute embolism and thrombosis of unspecified deep veins of unspecified lower extremity; W19.XXXD Unspecified fall, subsequent encounter; I10 Essential (primary) hypertension; E78.5 Hyperlipidemia, unspecified; M19.90 Unspecified osteoarthritis, unspecified site; I25.119 Atherosclerotic heart disease of native coronary artery with unspecified angina pectoris